=== PATIENT | female | born 1935 | race Caucasian/White ===

== ENCOUNTER → 2017-11-22 08:37 | Outpatient (CLI) | payer MEDICARE, SELFPAY ==
--- NOTE | 2017-11-22 08:41 | NM_ITS ---
CLINICAL: 82-year-old female with reported history of painful left hip arthroplasty, presumably operated > 2 years previous. LIMITED 99m Tc MDP THREE PHASE BONE SCINTIGRAPHY COMPARISON: None available FINDINGS: Following the intravenous administration of 22.3 mCi of 99m Tc MDP, three-phase bone acquisitions of the pelvis reveal: 1. The flow and immediate static blood pool acquisitions demonstrate normal arterial and venous phase distribution of the radiopharmaceutical to the bilateral hemipelvis. 2. Delayed images depict increased radiopharmaceutical concentration identified in the inferior anterior acetabular component and to a lesser extent intertrochanteric aspect of the symptomatic left hip prosthesis. 3. An increase in tracer concentration is identified in the fifth lumbar vertebra posteriorly on the right, posterior sacrum. 4. The remaining limited skeletal structures are scintigraphically unremarkable. The right hip arthroplasty demonstrates no definitive abnormal increase in radiopharmaceutical concentration. NM/Bone Scan Three Phase IMPRESSION: 1. The increase in radiopharmaceutical concentration identified in the inferior-anterior acetabular component and lesser intertrochanteric aspect of the painful left hip prosthesis may represent loosening in the setting of operative intervention > 2 years prior to the current presentation. If an infectious etiology is a diagnostic consideration, correlation with labeled leukocyte imaging is recommended. 2. Degenerative arthritis is otherwise expressed in the fifth lumbar vertebra and sacrum as described above. Electronically Signed: Zhang Madsen DO at 11:02 EST Tel , Service support ,
== END ==
PROVIDERS: Family Provider Family Medicine; PCP Family Medicine; Visit Provider Physician Assistant
DX: Z96.641 Presence of right artificial hip joint (principal); Z96.642 Presence of left artificial hip joint
CPT/HCPCS: 78315

== ENCOUNTER → 2023-07-31 | Outpatient (CLI) | payer MEDICARE, SELFPAY ==
--- NOTE | 2023-07-31 08:56 | US_ITS ---
STUDY: ULTRASOUND BREAST - RIGHT REASON FOR EXAM: Female, 88 years old. Status post mastectomy with palpable mass TECHNIQUE: Axial and longitudinal images of the RIGHT breast were performed with a high resolution ultrasound transducer. # OF IMAGES: 34 COMPARISON: None. FINDINGS: RIGHT Breast: Homogeneous fatty background echotexture. Multiple longitudinal and transverse ultrasound images of the medial right chest wall the site of mastectomy confirm a 1.0 cm oval hyperechoic parallel circumscribed hyperechoic mass with no posterior features in the superficial subcutis fat just deep to the skin consistent with subcutaneous fat or lipoma. There is another similar to centimeter hyperechoic area within the chest wall which may represent focal fat or lipoma.: US/Breast Limited Unilateral IMPRESSION: Ultrasound confirms 2 hyperechoic masses consistent with focal fat or lipoma is. ASSESSMENT CATEGORY: BIRADS Category 2: Benign. A letter regarding these results will be sent to the patient by the facility within 30 days. Electronically Signed: Zhang Mehta MD at 11:15 EDT ,
== END | disposition home or self-care (01) ==
PROVIDERS: PCP Nurse Practitioner; Referring Provider Pharmacist Pharmacist Clinician (PhC)/ Clinical Pharmacy Specialist; Visit Provider Pharmacist Pharmacist Clinician (PhC)/ Clinical Pharmacy Specialist
DX: C50.211 Malignant neoplasm of upper-inner quadrant of right female breast (principal); Z17.1 Estrogen receptor negative status [ER-]; Z90.11 Acquired absence of right breast and nipple; N63.10 Unspecified lump in the right breast, unspecified quadrant
CPT/HCPCS: 76642

== ENCOUNTER 2024-01-22 14:18 | Observation (INO) | payer MEDICARE, SELFPAY ==
[2024-01-22 14:20] VITALS: BP 191/103; PULSE 86; RESP 16; TEMP 37.6; O2SAT 97; BMI 21.7
--- NOTE | 2024-01-22 14:34 | ED.VIS.LOWEX ---
HPI History of Present Illness HPI Narrative: Patient presents with left hip pain that began after a fall today. Patient states she was attempting to give a urine specimen at an outpatient lab when she lost her balance and fell. Patient states she landed on her left hip. Patient states she has been having difficulty bearing weight and moving her hip since the fall. Patient describes her pain as aching. Patient states it is better with rest. Patient denies any paresthesias or weakness. Patient did hit her head but denies any loss of consciousness. Patient is not on any blood thinners. Patient also admits to some pain over the right shoulder area. Patient states that she is able to move her right shoulder without difficulty. Patient states she does not feel there is anything broken in her right shoulder. Chief Complaint: Lower Extremity Injury Onset/Context/Timing Onset: Today Context: Sudden Onset Timing: Continuous Quality of Pain: Aching Location: Left hip Worsened by: Movement, weightbearing Relieved by: Rest Associated Symptoms Associated Symptoms: Positive for Parasthesia [facility] Medical History (Updated 01/22/24 @ 23:[address] Prasad Galeas, ) Diabetes Former smoker History of breast cancer Hyperlipemia Hypothyroidism Osteoarthritis (arthritis due to wear and tear of joints) Pes planus Right knee pain Sialosis Type 2 diabetes mellitus Home Medications multivitamin with folic acid 400 mcg tablet 1 tab PO DAILY 02/27/17 [History Last Taken Unknown] omega-3 fatty acids-fish oil 340 mg-1,000 mg capsule 1 ea PO BID 02/27/17 [History Last Taken Unknown] pravastatin 20 mg tablet 20 mg PO QHS 02/27/17 [History Last Taken Unknown] biotin 10,000 mcg capsule 10,000 mcg PO DAILY 01/11/18 [History Last Taken Unknown] insulin lispro 100 unit/mL subcutaneous pen (Humalog KwikPen (U-100) Insulin) 3 unit subcut DAILY 01/22/24 [History Last Taken Unknown] levothyroxine 88 mcg tablet 88 mcg PO DAILY disorder of thyroid gland 01/22/24 [History Last Taken Unknown] metformin 500 mg 24 hr tablet,extended release (gastric retention) 1,000 mg PO BID 01/22/24 [History Last Taken Unknown] pioglitazone 15 mg tablet 15 mg PO DAILY 01/22/24 [History Last Taken Unknown] sitagliptin phosphate 50 mg tablet (Januvia) 50 mg PO DAILY 01/22/24 [History Last Taken Unknown] Allergy/AdvReac Type Severity Reaction Status Date / Time No Known Allergies Allergy Verified 01/22/24 14:19 Family History (Updated 01/11/18 @ 10:40 by Rosa Calixto) Mother Colon cancer Father Heart disease Brother Parkinson disease Surgical History Colonoscopy planned History of breast biopsy History of mastectomy 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, 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 Social History Smoking Status: Never smoker alcohol intake: current alcohol intake frequency: 0-2 drinks per day Alcohol type: hard liquor what type of physical activity do you participate in: walking frequency: 3-4 times per week ROS ROS ED Constitutional Constitutional ED: Denies chills or fever(s) Eyes Eyes: Denies blurry vision or change in vision ENT ENT ED: Denies rhinorrhea or sore throat Cardiovascular Cardiovascular: Denies chest pain or palpitations Respiratory/Chest Respiratory/Chest: Denies cough or dyspnea Gastrointestinal Gastrointestinal: Denies nausea or vomiting Genitourinary Genitourinary ED: Denies dysuria or hematuria Musculoskeletal Musculoskeletal: Reports back pain; Denies neck pain Integumentary Denies abscess or rash Neurologic Neurologic: Denies headache(s) or weakness Allergic/Immunologic Allergic/Immunologic ED: Denies mouth swelling or urticaria EXAM Physical Exam Const Vital Signs: 01/22/24 14:20 Temperature 99.7 F H Temperature Source Oral Pulse Rate 86 Respiratory Rate 16 Blood Pressure 191/103 H Blood Pressure Mean 132 Pulse Ox 97 Oxygen Delivery Method Room Air Positive well nourished and well developed General Appearance ED: well developed HEENT Reports moist mucous membranes HEENT Narrative: There is a small hematoma over the left parietal area. There is no bony crepitance or step-off noted. There are no lacerations noted. Extremity Extremity Narrative: There is tenderness over the lateral aspect of the left hip. There is no obvious deformity noted. There is pain with internal rotation but no pain with external rotation. Strength is 5/5 bilaterally in the lower extremities. There are no sensory deficits noted. Pedal pulses are equal bilaterally. There is also mild tenderness over the right shoulder and trapezius muscle. There is no obvious deformity. There is no edema or ecchymosis. There is good range of motion. Radial pulses are equal bilaterally. Strength is 5/5 bilaterally upper extremities. There are no sensory deficits noted. Neuro oriented x3, CN's II-XII intact bilaterally, moves all extremities and no sensory deficits noted Sensorium / Orientation: alert Motor Exam: strength 5/5 throughout Psych mental status grossly normal MDM MDM MDM Narrative Medical decision making narrative: Differential diagnosis includes hip fracture, contusion, and head injury. X-rays of the left hip and pelvis will be obtained to assess for fracture and dislocation. Radiography Diagnostic Testing: Clinical Impression(s) from Imaging Studies Hip/Pelvis X-Ray 01/22/24 15:10 IMPRESSION: Osteopenia with osteoarthritic changes, postoperative change and no acute osseous abnormality. Electronically Signed: Igor Culp MD at 15:21 EDT , X-rays of the left hip were obtained. There are 3 views. There is osteopenia. There is no acute fracture or dislocation noted. There are some degenerative changes noted. Radiologist also interpreted the x-ray and agrees. Treatment and Re-Evaluation Narrative: Patient was initially ordered a dose of [place]. Patient does not want any opiate pain medications. Patient requested Tylenol. This was ordered. Patient was advised of her findings. Patient will be ambulated here in the emergency department to see if she can ambulate. Patient was able to ambulate with a walker here in the emergency department. Family states that the patient is unsafe to go home. Family is concerned the patient may fall again. Family is requesting the patient be admitted for physical therapy and custodial placement. Case was discussed with the hospitalist. He will admit the patient to his service. Patient and family understood and were agreeable with the plan. All questions were answered. Discharge Plan Triage Chief Complaint: Lower Extremity Injury ED Provider: Prasad Galeas Dx/Rx/DC Orders Clinical Impression: Fall, Contusion of left hip, initial encounter, Frequent falls Primary Care Provider: Kate Feldman Disposition Disposition: [facility] Discharge Date/Time: 01/22/24 17:55
--- NOTE | 2024-01-22 15:10 | RAD_ITS ---
STUDY: X-RAY - PELVIS AND LEFT HIP REASON FOR EXAM: Female, 89 years old. Fall. Pain. TECHNIQUE: 3 views of the pelvis and hip. COMPARISON: None. FINDINGS: Normal bowel gas pattern with air seen to the rectosigmoid. Moderate amount of feces in the colon. Phleboliths. Osteopenia. Mild arthrosis of both sacroiliac joints and the symphysis pubis. Bilateral total hip arthroplasties in anatomic alignment without complications of the visualized components. Moderate lower lumbosacral spondylosis. RAD/HIP, UNI W/ Pelvis 2-3 Views IMPRESSION: Osteopenia with osteoarthritic changes, postoperative change and no acute osseous abnormality. Electronically Signed: Igor Culp MD at 15:21 EDT ,
[2024-01-22] MEDS: Acetaminophen 500 MG Tablet 1000 MG PO (15:22)
--- NOTE | 2024-01-22 16:19 | ED.RN ---
THIS RN AMBULATED PATIENT AND SHE AMBULATED WELL WITH A WALKER WITH SOME PAIN BUT WAS STILL ABLE TO WALK TO BATHROOM, LOWER HERSELF ONTO TOILET AND AMBULATE HERSELF BACK TO HER ROOM. DAUGHTER IN ROOM AND STATED CONCERN FOR PATIENT TO BE GOING HOME BY HERSELF. THIS RN SPOKE WITH DAUGHTER AND TOLD HER WE DON'T HAVE ANY REASON TO ADMIT PATIENT AND WE DO NOT PRESCRIBE OUTPATIENT PHYSICAL THERAPY IN THE ER. PT. STATES SHE THINKS SHE WOULD BENEFIT FROM AN INAPTIENT REHAB/LONGTERM PLACEMENT. NOTIFIED AND ASKED THIS RN TO CALL SOCIAL WORK.
--- NOTE | 2024-01-22 16:33 | ED.RN ---
THIS RN SPOKE WITH MIKALA MILLS WHO STATED PATIENT WOULD NEED TO BE ADMITTED FOR PT/OT EVAL AND PRECERTIFICATION BEFORE SHE CAN BE PLACE ANYWHERE.
[2024-01-22 17:47] VITALS: BP 144/86; PULSE 87; RESP 16; TEMP 36.8; O2SAT 97
[2024-01-22 17:50] VITALS: BP 144/86; PULSE 89; RESP 17; TEMP 36.4; O2SAT 97
[2024-01-22 18:11] VITALS: BMI 19.8
[2024-01-22 18:39] VITALS: BP 147/91; PULSE 88; RESP 18; TEMP 36.9; O2SAT 98
[2024-01-22 20:08] VITALS: BP 159/86; PULSE 87; RESP 18; TEMP 36.8; O2SAT 99
[2024-01-22 20:34] LABS: Bedside Glucose 355 mg/dL (74-106)
[2024-01-22] MEDS: Pravastatin 20 MG Tablet PO (20:40)
[2024-01-22] MEDS: Insulin Lispro 100 UNIT/ML INSULN.PEN SC (20:40)
--- NOTE | 2024-01-22 21:36 | PCM.HP.STD ---
HPI - General General Date of Admission: 01/22/24 Date of Service: 01/22/24 Chief Complaint: Generalized weakness, left hip pain HPI Narrative SHAWN JACKSON, is a 89 F who presents to the emergency room at [facility] after sustaining a fall today, she was attempting to give a urine specimen at an outpatient lab when she lost her balance and fell, patient landed on her left hip. Patient stated that she has been having difficulty bearing weight and moving her hip since she fell. Workup in the emergency room included imaging studies which showed no evidence of hip fracture, there was no evidence of pelvic fracture. Patient's labs showed a glucose of 355 today. Patient's daughter requested the patient be admitted for PT and OT evaluation, there is a question that the patient may need to go to a penitentiary facility for short-term rehab services rather than go back to her home. Patient will be placed into [facility] and be seen by PT and OT, her home medications will be continued, blood sugars will be monitored. [facility] Medical History (Updated 01/22/24 @ 18:20 by Pat Darling) Diabetes Former smoker History of breast cancer Hyperlipemia Hypothyroidism Osteoarthritis (arthritis due to wear and tear of joints) Pes planus Right knee pain Sialosis Type 2 diabetes mellitus Home Medications multivitamin with folic acid 400 mcg tablet 1 tab PO DAILY 02/27/17 [History Last Taken Unknown] omega-3 fatty acids-fish oil 340 mg-1,000 mg capsule 1 ea PO BID 02/27/17 [History Last Taken Unknown] pravastatin 20 mg tablet 20 mg PO QHS 02/27/17 [History Last Taken Unknown] biotin 10,000 mcg capsule 10,000 mcg PO DAILY 01/11/18 [History Last Taken Unknown] insulin lispro 100 unit/mL subcutaneous pen (Humalog KwikPen (U-100) Insulin) 3 unit subcut DAILY 01/22/24 [History Last Taken Unknown] levothyroxine 88 mcg tablet 88 mcg PO DAILY disorder of thyroid gland 01/22/24 [History Last Taken Unknown] metformin 500 mg 24 hr tablet,extended release (gastric retention) 1,000 mg PO BID 01/22/24 [History Last Taken Unknown] pioglitazone 15 mg tablet 15 mg PO DAILY 01/22/24 [History Last Taken Unknown] sitagliptin phosphate 50 mg tablet (Januvia) 50 mg PO DAILY 01/22/24 [History Last Taken Unknown] Allergy/AdvReac Type Severity Reaction Status Date / Time No Known Allergies Allergy Verified 01/22/24 14:19 Family History (Updated 01/11/18 @ 10:40 by Rosa Calixto) Mother Colon cancer Father Heart disease Brother Parkinson disease Surgical History Colonoscopy planned History of breast biopsy History of mastectomy 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, 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 Social History Smoking Status: Never smoker alcohol intake: current alcohol intake frequency: 0-2 drinks per day Alcohol type: hard liquor what type of physical activity do you participate in: walking frequency: 3-4 times per week ROS Constitutional Constitutional: Reports weakness; Denies anorexia, change in weight, chills, fever(s) or night sweats Eyes Eyes: Denies blurry vision, change in vision, discharge from eye(s) or eye pain Cardiovascular Cardiovascular: Denies chest pain, claudication, dyspnea on exertion, edema, lightheadedness or palpitations Respiratory/Chest Respiratory/Chest: Denies cough, hemoptysis, shortness of breath at rest or shortness of breath with exertion Gastrointestinal Gastrointestinal: Denies abdominal pain, constipation, diarrhea, hematemesis, hematochezia, melena, nausea or vomiting Genitourinary Genitourinary: Denies dysuria, hematuria, urinary frequency, urinary hesitancy, urinary incontinence or urinary urgency Musculoskeletal Musculoskeletal: Denies back pain, joint pain, joint stiffness, joint swelling, myalgias or neck pain Neurologic Neurologic: Denies abnormal gait, abnormal speech, confusion, dizziness, focal weakness, headache(s), loss of vision, numbness, other visual disturbances, paresthesias, syncope or tingling Psychiatric Psychiatric: Denies anxiety, cognitive impairment, depression, irritability, mood swings or suicidal ideation Endocrine Endocrinology: Denies change in body appearance, cold intolerance, excessive sweating, heat intolerance, polydipsia or polyuria Hematologic/Lymphatic Hematologic/Lymphatic: Denies none, anemia, easy bleeding, easy bruising or lymphadenopathy Allergic/Immunologic Allergic/Immunologic: Denies rhinitis, urticaria, eczemia or asthma Vital Signs Vital Signs Vital Signs: 01/22/24 14:20 01/22/24 17:47 01/22/24 17:50 Temperature 99.7 F H 98.3 F 97.5 F L Temperature Source Oral Temporal Pulse Rate 86 87 89 Respiratory Rate 16 16 17 Respiratory Effort Respiratory Depth Respiratory Pattern Blood Pressure 191/103 H 144/86 H 144/86 H Blood Pressure Mean 132 105 105 Blood Pressure Source Blood Pressure Position Blood Pressure Location Pulse Ox 97 97 97 Oxygen Delivery Method Room Air Room Air 01/22/24 18:39 01/22/24 20:08 01/22/24 20:08 Temperature 98.5 F 98.2 F Temperature Source Oral Temporal Pulse Rate 88 87 Respiratory Rate 18 18 Respiratory Effort Normal Non-Labored Respiratory Depth Normal Respiratory Pattern Normal Blood Pressure 147/91 H 159/86 H Blood Pressure Mean 109 110 Blood Pressure Source Monitor Monitor Blood Pressure Position Supine Semi-Fowlers Blood Pressure Location Right Arm Left Arm Pulse Ox 98 99 Oxygen Delivery Method Room Air Room Air Room Air Weight Weight: 47.627 kg Body Mass Index (BMI) 19.8 Physical Exam Const alert, oriented x3, no apparent distress, average body habitus and healthy appearing General Appearance: cooperative, well kempt and well developed Orientation / Consciousness: awake, oriented to person, oriented to place and oriented to time HEENT normocephalic, head/scalp atraumatic, hearing grossly normal bilaterally and moist oral mucous membranes Eyes PERRL, EOMs intact bilaterally and conjunctivae normal Neck supple, no JVD, thyroid normal and no carotid bruits General: trachea midline Resp normal respiratory effort, no retractions, no use of accessory muscles and clear to auscultation bilaterally Auscultation: Negative for rales, rhonchi or wheezes Cardio regular rate, regular rhythm, S1 normal heart sound, S2 normal heart sound, no murmurs, no rub and no gallops GI normal to inspection, nondistended, normoactive bowel sounds, soft to palpation, non-tender and non-distended Extremity no clubbing, cyanosis or edema Skin no rashes or lesions noted General Skin Exam: no breakdown Neuro oriented x3, CN's II-XII intact bilaterally, moves all extremities, no focal motor deficits and no sensory deficits noted Sensorium / Orientation: awake, alert, oriented to person, oriented to place and oriented to time Speech: speech normal Psych affect normal Results Lab / Micro Data Labs: Laboratory Results - last 24 hr 01/22/24 20:11: POC Glucose 355 H Imaging Radiology Impression Hip/Pelvis X-Ray 01/22/24 15:10 IMPRESSION: Osteopenia with osteoarthritic changes, postoperative change and no acute osseous abnormality. Electronically Signed: Igor Culp MD at 15:21 EDT Reading Location ID and State: [address] [place] [address] , Service support , Assessment & Plan Assessment/Plan (1) Contusion of left hip, initial encounter: PLAN: Plan 1. Acute debility secondary to left hip contusion-patient will be placed in observation status on [facility] 3, she will be seen by PT and OT. Patient will be given Tylenol for pain, I cautioned her against taking any nonsteroidal anti-inflammatories due to her age and possible effects on her kidneys. #2 type 2 diabetes-patient's blood sugars will be monitored, sliding scale insulin will be used as needed, patient will remain on her home medications #3 hyperlipidemia-patient is on pravastatin Total clinical time spent by myself addressing the patient's medical issues, reviewing all of her data, and collaborating with patient's care team: 55 minutes Charges/Coding Visit Charges Inpatient E&M: 44908 Init Hosp L2
[2024-01-23 02:26] VITALS: BP 133/71; PULSE 89; RESP 18; TEMP 36.8; O2SAT 95
[2024-01-23] MEDS: Insulin Lispro 100 UNIT/ML INSULN.PEN SC ×4 (05:51→20:45)
[2024-01-23 06:15] LABS: Bedside Glucose 319 mg/dL (74-106)
[2024-01-23 09:10] VITALS: BP 117/73; PULSE 101; RESP 16; TEMP 36.7; O2SAT 95
[2024-01-23] MEDS: Aspirin E.C. 81 MG Tablet PO (09:11)
[2024-01-23 09:25] LABS: Hematocrit 37.5 % (37-47); Hemoglobin 12.4 g/dL (12.0-15.0); Mean Corp Hgb Conc 33.1 g/dL (32-36); Mean Corpuscular Volume 93.8 fL (81-99); Mean Platelet Vol. 9.3 fl (6.2-12.0); Platelet Count 287 K/mm3 (150-450); RBC Distribution Width CV 12.2 % (11.6-14.6); RBC Distribution Width SD 42.1 fl (35.1-43.9)
[2024-01-23 09:58] LABS: Anion Gap 6 (5-15); BUN 12 mg/dL (7-18); BUN/Creat Ratio 16.4 RATIO (10-20); Calcium,Total 9.1 mg/dL (8.5-10.1); Chloride 103 mmol/L (98-107); Creatinine, Serum 0.73 mg/dL (0.55-1.02); EST Glomerular Filtration Rate 80 mL/min (>60); Est Glom Filt Rate - Afr Amer 97 mL/min (>60); Estimated Creatinine Clearance 37.25 ml/min; Glucose 249 mg/dL (74-106); Potassium 3.6 mmol/L (3.5-5.1); Sodium Level 136 mmol/L (136-145)
[2024-01-23 10:06] LABS: Thyroid Stim Hormone (TSH) 1.98 uIU/mL (0.358-3.74)
--- NOTE | 2024-01-23 11:15 | CASEMGMT ---
Discharge Planning A list of SNF providers including quality and resource use data and consistent with the patient's preferred geographic region, medical needs, and insurance network was created in [employer] Guide.? This list was provided to the SW. Padmini Oropeza Discharge Planning Asst.
[2024-01-23 11:18] LABS: Bedside Glucose 273 mg/dL (74-106)
--- NOTE | 2024-01-23 11:35 | CASEMGMT ---
RN?CM?LANDING SIGNAL OFFICER?CM?to room to meet with patient for initial transition planning/care coordination?assessment.?RN?CM?introduced self and role at [facility].? Pt voices understanding and consents to?assessment?at this time.? Pt sitting up in chair in room in no distress at this time.? Pt is A/O at this time and answers all questions appropriately.?? Care providers, pharmacy, and demographics verified/updated at this time. PCP: Dr Feldman Specialists: [facility] (pt does not remember her name). Pt sees an osteopathic physician in [place], Dr Osei-surgeon. Preferred Pharmacy: [facility] Insurance: [employer] Prescription Benefit:? Living Will/HPOA:?Has both LW and HCPOA, who is her son, Russ. LNOK: 2 sons, Russ and Martin. Dtr, Merry. DIL: Irena ( to Martin) Living Arrangements: Lives alone in one-story apt w/one small step to enter. Pt was indep w/ADL's and IADL's until she fell yesterday and has hip pain now. Pt states @ her baseline, she does her own laundry and meals. She drives to grocery store (usually takes a friend w/her) or family will bring in food at times. Since her fall, she states she does not think she can go home alone and be able to take care of herself. Transportation:?Pt states she does drive, but not often. DIL, Irena, takes her to all of her appts. DME: ?States has the following DME:?built-in shower seat, cane, walker, rollator, glucometer. She would like info on medical alert. HHC/SNF: No hx of SNF. Just recently had [facility], but they just discharged her prior to [facility]. Discussed discharge planning and questions answered. Pt states she does not think she will be able to go home @ discharge and thinks she may need to go to a SNF. [facility] is her 1st choice and declines wanting list of other options unless they are unable to accept. She states if she would improve well enough to discharge home, then she would like [facility] again declines wanting list of other options unless they are unable to accept her. PT/OT evals pending. She states Irena/DIL will be coming in today and she would like someone to talk w/her as well re: SNF/insurance process. Radha MILLS, made aware. PLAN:??TBD, pending therapy evals. SNF vs Home w/HHC. Angel BSN?RN?CM
--- NOTE | 2024-01-23 12:11 | PN.HOSP_ITS ---
Reason for Visit Reason for Visit: Diagnoses Contusion of left hip, initial encounter (01/22/24) Subjective Subjective No acute events overnight. Patient seen at bedside this morning. Sitting up comfortably in bedside chair, conversing normally, in no acute distress. Patient denies any pain or discomfort at rest but reports moderate left hip and general left leg pain with ambulation. She otherwise feels well this morning, ate breakfast without issue. No other acute concerns at this time. Discussed further with patient's [id number] Irena over the phone this afternoon. Irena noted that the patient has now had 2 falls in the last few weeks. She noted that this is very unusual for the patient, as the patient has generally had fairly good health at baseline. Apparently the first episode happened when the patient was walking into [place], and she fell into a mulch bed off a sidewalk. Patient noted at that time that she had no prodromal symptoms prior to that episode and did not remember falling. Yesterday, patient did mikie mber falling, states that she was at an outpatient lab to give a urine sample and she felt like she simply lost her balance and fell. Patient denies any lightheadedness or dizziness with going from sitting to standing. Denies any history of palpitations. Objective Data Objective Data Vital Signs: Vital Signs Temp Pulse Resp BP Pulse Ox O2 Del Method 98.1 F 101 H 16 117/73 95 Room Air 01/23/24 09:10 01/23/24 09:10 01/23/24 09:10 01/23/24 09:10 01/23/24 09:10 01/23/24 09:10 Oxygen Delivery Method Room Air Weight: 47.627 kg Body Mass Index (BMI) 19.8 Intake & Output: Intake and Output for Last 24 Hours 01/21/24 01/22/24 01/23/24 23:59 23:59 23:59 Intake Total 825 / 825 Balance 825 / 825 Lab / Micro Data 01/23/24 09:11 01/23/24 09:11 Labs: Laboratory Results - last 24 hr 01/22/24 20:11: POC Glucose 355 H 01/23/24 05:49: POC Glucose 319 H 01/23/24 09:11: WBC 7.0, RBC 4.00 L, Hgb 12.4, Hct 37.5, MCV 93.8, MCH 31.0, MCHC 33.1, RDW Std Deviation 42.1, RDW Coeff of Milly 12.2, Plt Count 287, MPV 9. 3, Sodium 136, Potassium 3.6, Chloride 103, Carbon Dioxide 27.0, Anion Gap 6, BUN 12, Creatinine 0.73, Estim Creat Clear Calc 37.25, Est GFR (MDRD) Af Amer 97, Est GFR (MDRD) Non-Af 80, BUN/Creatinine Ratio 16.4, Glucose 249 H, Calcium 9.1, TSH 1.98 01/23/24 10:59: POC Glucose 273 H Radiography Diagnostic Testing: Radiology Impression Hip/Pelvis X-Ray 01/22/24 15:10 IMPRESSION: Osteopenia with osteoarthritic changes, postoperative change and no acute osseous abnormality. Electronically Signed: Igor Culp MD at 15:21 EDT Reading Location ID and State: [address] [place] [address] , Service support , Physical Exam Const alert, oriented x3 and no apparent distress Constitutional Narrative: Pleasant elderly female, thin appearing, otherwise sitting up comfortably in bed, conversing normally, no acute distress. General Appearance: cooperative and comfortable HEENT normocephalic, head/scalp atraumatic, hearing grossly normal bilaterally, nasal mucous membranes and turbinates normal and moist oral mucous membranes Eyes PERRL, EOMs intact bilaterally and conjunctivae normal Neck full ROM Chest inspection of chest normal Resp normal respiratory effort, normal air movement, no use of accessory muscles and clear to auscultation bilaterally Cardio regular rate, regular rhythm, no murmurs and peripheral pulses 2+ throughout GI normal to inspection, nondistended, normoactive bowel sounds, soft to palpation, non-tender and non-distended Back/Spine normal ROM Extremity normal to inspection Extremity Narrative: No gross abnormalities noted on visual exam. Did not attempt any movement of patient. Skin no rashes or lesions noted Neuro no focal motor deficits and no sensory deficits noted Speech: speech normal Psych mental status grossly normal Assessment & Plan Assessment/Plan (1) Frequent falls: PLAN: Plan Patient is an 89-year-old female who presented to [facility] ED on 01/22/2024 after a fall. 1. Mechanical fall with left hip pain, acute debility, history of bilateral total hip arthroplasties Presented after mechanical fall. Hip/pelvis x-ray on admit showed bilateral total hip arthroplasties in alignment without complications, osteopenia with osteoarthritic changes, no acute abnormalities. ? PT/OT/case management following. Likely planning for SNF on discharge. Tylenol as needed for pain control. 2. Reported recent syncopal episode with fall See HPI for further details. Patient has history of diabetes and hy perlipidemia, no other known cardiac history. CT brain without contrast on 01/22 without acute findings. ? Started on cardiac monitoring on 01/22 and echo ordered for further evaluation for syncope. Will follow-up. 3. Type 2 diabetes mellitus with hyperglycemia Home regimen of metformin 1000 mg twice daily, pioglitazone 15 mg daily, Sitagliptin 50 mg daily. Blood glucose 249 on admit. A1c 8.4%. ? Continue sliding-scale insulin with meals for now, adjust as needed. Chronic medical conditions: ? Hypothyroidism: TSH 1.98 on admit. Continue home Synthroid. ? Hyperlipidemia: Continue home statin. DVT prophylaxis: Lovenox CODE STATUS: Full code, unverified Expected disposition: SNF, 1 to 2 days Total clinical time spent by myself addressing the patient's medical issues, reviewing all the data, and collaborating with patient's care team: 35 minutes. Charges/Coding Visit Charges Inpatient E&M: 20924 Subs Hosp L2
[2024-01-23 12:31] LABS: Hemoglobin A1c 8.4 % (3.8-5.6)
[2024-01-23 14:00] VITALS: BP 131/85; PULSE 96; RESP 18; TEMP 36.8; O2SAT 96
--- NOTE | 2024-01-23 14:41 | CASEMGMT ---
Social Work SW met with pt's daughter in law Jaylin and with pt. Pt and dgt in law in agreement that pt will need short term SNF placement prior to return home alone. A list of SNF providers including quality and resource use data and consistent with the patient?s preferred geographic region, medical needs, and insurance network were [facility]. Pt's preferred provider is [facility]. Pt has not yet had therapy. SW will make referral once therapy has seen. SW provided pt with information regarding medical alert systems. Plan: TCU, pending acceptance and precVIVIAN Mcginnis
--- NOTE | 2024-01-23 15:29 | ECHOD_ITS ---
Reason For Study: Syncope Procedure This was a 2D Doppler, Color Flow transthoracic echocardiogram. Myocardial strain analysis was performed in this exam to aid in the assessment of cardiac function. Exam performed portable in patient room. Left Ventricle Normal LV size. Left ventricular systolic function is normal. The estimated ejection fraction is 55 %. Stage 1 diastolic dysfunction. No regional wall motion abnormalities noted. Right Ventricle Normal RV size. Normal systolic function. Atria Normal left atrium. Normal right atrium. Mitral Valve Normal mitral valve. Tricuspid Valve Normal tricuspid valve. Mild (1+) tricuspid valve insufficiency. Pulmonary artery systolic pressure is 30 mmHg. Aortic Valve Trisinus/trileaflet aortic valve. Mild (1+) aortic valve insufficiency. Pulmonic Valve Normal pulmonic valve. Great Vessels Mildly dilated aortic root. The pulmonary artery is normal size. Normal inferior vena cava. Pericardium/Pleural Small pericardial effusion. MMode/2D Measurements & Calculations LVIDd: 4.3 cm IVSd: 1.1 cm Ao root diam: 3.8 cm LVIDs: 2.2 cm LVPWd: 1.1 cm RVDd: 2.6 cm FS: 48.5 % LAV(MOD-bp): 22.0 ml LVAd ap4: 17.1 cm2 SV(MOD-sp4): 21.7 ml LAV(MOD-bp) Indexed: 15.3 ml/m2 LVLd ap4: 6.8 cm LAV(MOD-sp2): 21.1 ml EDV(MOD-sp4): 35.8 ml LAV(MOD-sp4): 22.4 ml EDV(sp4-el): 36.6 ml LVAs ap4: 9.3 cm2 LVLs ap4: 5.3 cm ESV(MOD-sp4): 14.1 ml ESV(sp4-el): 13.8 ml EF(MOD-sp4): 60.7 % EF(sp4-el): 62.2 % SV(sp4-el): 22.8 ml LA A4 area: 10.6 cm2 LA dimension(2D): 3.3 cm RA A4 area: 9.0 cm2 TAPSE: 2.3 cm Time Measurements MV dec time: 0.21 sec Doppler Measurements & Calculations MV E max amandeep: 56.7 cm/sec Lat Peak E' Amandeep: 8.2 cm/sec Med Peak E' Amandeep: 5.5 cm/sec MV A max amandeep: 92.2 cm/sec E/E' lat: 6.9 E/E' med: 10.4 MV E/A: 0.61 Ao V2 max: 132.3 cm/sec AI max amandeep: 389.9 cm/sec MV dec slope: 273.4 cm/sec2 Ao max P.0 mmHg AI max P.8 mmHg Ao V2 mean: 97.1 cm/sec Ao mean P.0 mmHg AI dec slope: 239.3 cm/sec2 Ao V2 VTI: 25.5 cm AI P1/2t: 477.1 msec AV (velocity ratio): 0.80 LV V1 max: 106.4 cm/sec PA V2 max: 101.6 cm/sec PI end-d amandeep: 119.7 cm/sec LV V1 max P.5 mmHg LV V1 mean P.6 mmHg LV V1 mean: 78.5 cm/sec LV V1 VTI: 20.3 cm TR max amandeep: 256.4 cm/sec TR max P.3 mmHg ECHO/Echo Complete Interpretation Summary Normal LV size. Left ventricular systolic function is normal. The estimated ejection fraction is 55 %. Mild (1+) aortic valve insufficiency. Stage 1 diastolic dysfunction. The global longitudinal strain is mildly abnormal. The global longitudinal stra in = -16.7% (abnormal). Ordering Physician: Chace Randle Referring Physician: Kate Feldman Performed By: Brittany Hernandez, KAREN, RVT
--- NOTE | 2024-01-23 15:31 | CASEMGMT ---
Met with patient to complete CASTELLANO form. CASTELLANO form explained to?pt who voiced understanding and signed form. Original form placed in pt?s chart and copy provided to?patient. Padmini Oropeza, Discharge Planning Asst
--- NOTE | 2024-01-23 15:52 | CT_ITS ---
EXAMINATION : Head CT w/out contrast HISTORY : recent falls, r/o intracranial pathology COMPARISON : None. TECHNIQUE : Multiple contiguous axial images were obtained from the skull base to the vertex without intravenous contrast. A radiation dose optimization technique was used for this scan. FINDINGS : There is no evidence for acute intracranial hemorrhage, mass effect, or midline shift. There is no extra-axial fluid collection. There are periventricular white matter changes consistent with chronic microvascular ischemic disease. There is sulcal widening and ventricular enlargement consistent with cerebral atrophy. There is normal singh-white differentiation, without CT evidence of acute ischemia or infarct. The skull base and calvarium are unremarkable. The orbits are unremarkable. The paranasal sinuses are clear. The mastoid air cells are well-aerated. The soft tissues are unremarkable. CT/Brain/Head without Contrast IMPRESSION: No acute intracranial abnormality. Chronic involutional and ischemic changes of the brain. Electronically Signed: Alessandro Ro MD at 16:44 EDT ,
[2024-01-23 16:42] LABS: Bedside Glucose 229 mg/dL (74-106)
[2024-01-23 20:38] VITALS: BP 164/88; PULSE 86; RESP 16; TEMP 36.6; O2SAT 96
[2024-01-23] MEDS: Pravastatin 20 MG Tablet PO (20:45)
[2024-01-23 21:08] LABS: Bedside Glucose 264 mg/dL (74-106)
[2024-01-24 02:40] VITALS: BP 153/91; PULSE 84; RESP 18; TEMP 36.9; O2SAT 94
[2024-01-24] MEDS: Insulin Lispro 100 UNIT/ML INSULN.PEN SC ×2 (05:32→12:03)
[2024-01-24 05:46] LABS: Bedside Glucose 247 mg/dL (74-106)
[2024-01-24 07:27] VITALS: BP 133/77; PULSE 88; RESP 14; TEMP 36.9; O2SAT 93
--- NOTE | 2024-01-24 08:52 | CASEMGMT ---
Addendum entered by Radha Parada 01/24/24 14:44: Social Work Precert has been obtained and physician updated. Per physician, pt is ready for dc today. DC orders faxed to TCU. SW met with pt and informed of dc today to TCU and pt is agreeable. Phone call to pts HCPOA and reviewed dc plan and he is agreeable. BART Mosqueda updated and agreeable. Nursing notified. Plan: TCU, skilled level of care VIVIAN Koehler Addendum entered by Radha Parada 01/24/24 10:14: Social Work TCU is able to accept pt and precert has been started. LINA met with pt and BART Osborn and updated. Both parties agreeable to dc plan. Plan: TCU, pending precert VIVIAN Del Angel Original Note: Social Work Pt has been seen by therapy and pt would benefit from short term SNF stay prior to return home. Pt's preferred provider is TCU. Referral made to TCU. LINA will await determination of acceptance. Pt will need precert prior to dc. Plan: TCU, pending acceptance and precert VIVIAN Koehler
[2024-01-24] MEDS: Enoxaparin 40 MG/0.4 ML Syringe SC (09:35)
[2024-01-24 11:49] LABS: Bedside Glucose 282 mg/dL (74-106)
--- NOTE | 2024-01-24 12:22 | DS.PCM_ITS ---
Providers Date of Admission: 01/22/24 Date of Discharge: 01/24/24 Primary Care Physician: Dr. Kate Feldman MD Reason For Visit: DEBILITY Diagnosis Discharge Diagnosis (1) Frequent falls: Status: Acute Code(s): R29.6 - Repeated falls Medications at Discharge Home Medications multivitamin with folic acid 400 mcg tablet 1 tab PO DAILY 02/27/17 omega-3 fatty acids-fish oil 340 mg-1,000 mg capsule 1 ea PO BID 02/27/17 pravastatin 20 mg tablet 20 mg PO QHS 02/27/17 biotin 10,000 mcg capsule 10,000 mcg PO DAILY 01/11/18 levothyroxine 88 mcg tablet 88 mcg PO DAILY disorder of thyroid gland 01/22/24 metformin 500 mg 24 hr tablet,extended release (gastric retention) 1,000 mg PO BID 01/22/24 pioglitazone 15 mg tablet 15 mg PO DAILY 01/22/24 sitagliptin phosphate 50 mg tablet (Januvia) 50 mg PO DAILY 01/22/24 Hospital Course Procedures EKG, Transthoracic echo and - (CT brain without contrast, hip/pelvis x-ray) Summary of Care Provided Minutes Spent on Discharge: 35 Hospital Course: Patient is an 89-year-old female who presented to [facility] ED on 01/22/2024 after a fall. Short hospital course as noted below. Patient di scharged to SNF in stable condition on . Mechanical fall with left hip pain, acute debility, history of bilateral total hip arthroplasties Presented after mechanical fall. Hip/pelvis x-ray on admit showed bilateral total hip arthroplasties in alignment without complications, osteopenia with osteoarthritic changes, no acute abnormalities. ? PT/OT/case management followed. Tylenol and ibuprofen as needed for pain control. Stable for discharge to SNF ([facility]) on 01/23. . Reported recent syncopal episode with fall See HPI for further details. Patient has history of diabetes and hype rlipidemia, no other known cardiac history. CT brain without contrast on 01/22 without acute findings. Cardiac monitoring done for approximate 24 hours, did not show any concerning findings. Echo on 01/23 showed EF 55%, stage I diastolic dysfunction, mildly abnormal global longitudinal strain, no significant valve disease. ? Very unlikely that any cardiac issues were contributing to this concern for syncopal episode or falls, suspect falls are mechanical in nature. Discharged to SNF as noted above. 3. Type 2 diabetes mellitus with hyperglycemia Home regimen of metformin 1000 mg twice daily, pioglitazone 15 mg daily, Sitagliptin 50 mg daily. Blood glucose 249 on admit. A1c 8.4%. ? Blood sugars did remain elevated in the 200s fairly consistently during hospitalization, suspect this is where her blood sugars normally run. Patient with good volume status, no polyuria or polydipsia noted. Treated with sliding- scale insulin with meals while inpatient. Okay to resume home p.o. regimen on discharge. Chronic medical conditions: ? Hypothyroidism: TSH 1.98 on admit. Continue home Synthroid. ? Hyperlipidemia: Continue home statin. Total clinical time spent by myself addressing the patient's medical issues, reviewing all the data, and collaborating with patient's care team: 35 minutes. Physical Exam Const alert, oriented x3 and no apparent distress Constitutional Narrative: Pleasant elderly female, thin appearing, otherwise sitting up comfortably in bed, conversing normally, no acute distress. General Appearance: cooperative and comfortable HEENT normocephalic, head/scalp atraumatic, hearing grossly normal bilaterally, nasal mucous membranes and turbinates normal and moist oral mucous membranes Eyes PERRL, EOMs intact bilaterally and conjunctivae normal Neck full ROM Chest inspection of chest normal Resp normal respiratory effort, normal air movement, no use of accessory muscles and clear to auscultation bilaterally Cardio regular rate, regular rhythm, no murmurs and peripheral pulses 2+ throughout GI normal to inspection, nondistended, normoactive bowel sounds, soft to palpation, non-tender and non-distended Back/Spine normal ROM Extremity normal to inspection Extremity Narrative: No gross abnormalities noted on visual exam. Did not attempt any movement of patient. Skin no rashes or lesions noted Neuro no focal motor deficits and no sensory deficits noted Speech: speech normal Psych mental status grossly normal Weight / BMI Weight Weight: 47.627 kg Body Mass Index (BMI) 19.8 ABG / Lab / Microbiology Data 01/23/24 09:11 01/23/24 09:11 Laboratory: Laboratory Results - last 24 hr 01/23/24 09:11: Hemoglobin A1c 8.4 H 01/23/24 16:24: POC Glucose 229 H 01/23/24 20:42: POC Glucose 264 H 01/24/24 05:28: POC Glucose 247 H 01/24/24 11:06: POC Glucose 282 H Radiography Diagnostic Testing: Radiology Impression Brain CT 01/23/24 15:52 IMPRESSION: No acute intracranial abnormality. Chronic involutional and ischemic changes of the brain. Electronically Signed: Alessandro Ro MD at 16:44 EDT Reading Location ID and State: [facility] / [place] Tel , Service support , Meaningful Use Info Meaningful Use Diagnoses (Choose all that apply): None applicable Discharge Plan Admission Admit Date/Time: 01/22/24 16:56 Primary Reason for Your Visit: Falls with debility Attending Provider: Chace Randle Primary Care Provider: Kate Feldman Consulting Providers: Brian Mclaughlin Instructions Patient Instructions: ED Contusion, Lower Extremity Discharge Orders/Prescriptions Prescriptions: Continued biotin 10,000 mcg capsule 10,000 mcg PO DAILY pravastatin 20 MG tablet 20 mg PO QHS omega-3 fatty acids-fish oil 1 EACH capsule 1 ea PO BID multivitamin with folic acid 1 TABLET tablet 1 tab PO DAILY pioglitazone 15 mg tablet 15 mg PO DAILY levothyroxine 88 mcg tablet 88 mcg PO DAILY metformin 500 mg tablet,ER manjula.retention 24 hr 1,000 mg PO BID Januvia 50 mg tablet 50 mg PO DAILY Discontinued insulin lispro [Humalog KwikPen Insulin] 100 unit/mL insulin pen 3 unit subcut DAILY Rx Instructions: 3 UNIT BEFORE BREAKFAST, 5 BEFORE LUNCH AND 5 BEFORE DINNER Referrals / Follow Up: Kate Feldman MD [Primary Care Provider] - 3-5 Days LEE LEHMAN NP-C [Non-Staff] - Disposition Disposition (needs filled in before D/C Order can be placed): [facility] Charges/Coding Visit Charges Inpatient E&M: 60203 Disch Hosp >30min
--- NOTE | 2024-01-24 12:22 | TREXTCAR_ITS ---
Diet Diet Order/Speech Therapy: 01/22/24 18:08 Diet: Consistent Carb - Calorie Controlled Food consistency:: Regular Liquid Consistency:: Regular/Thin How many daily calories?: 1800 calorie Routine Orders/Code Status Code Status: Full Code Therapies Weight Bearing: Full weight bearing Physical Therapy: Eval and Treat Occupational Therapy: Eval and Treat Problem/Diagnosis (1) Frequent falls: Status: Acute Code(s): R29.6 - Repeated falls Plan Patient is an 89-year-old female who presented to [facility] ED on 01/22/2024 after a fall. Short hospital course as noted below. Patient discharged to SNF in stable condition on 01/23. 1. Mechanical fall with left hip pain, acute debility, history of bilateral total hip arthroplasties Presented after mechanical fall. Hip/pelvis x-ray on admit showed bilateral total hip arthroplasties in alignment without complications, osteopenia with osteoarthritic changes, no acute abnormalities. ? PT/OT/case management followed. Tylenol and ibuprofen as needed for pain control. Stable for discharge to SNF ([facility]) on 01/23. 2. Reported recent syncopal episode with fall See HPI for further details. Patient has history of diabetes and hyperlipidem ia, no other known cardiac history. CT brain without contrast on 01/22 without acute findings. Cardiac monitoring done for approximate 24 hours, did not show any concerning findings. Echo on 01/23 showed EF 55%, stage I diastolic dysfunction, mildly abnormal global longitudinal strain, no significant valve disease. ? Very unlikely that any cardiac issues were contributing to this concern for syncopal episode or falls, suspect falls are mechanical in nature. Discharged to SNF as noted above. 3. Type 2 diabetes mellitus with hyperglycemia Home regimen of metformin 1000 mg twice daily, pioglitazone 15 mg daily, Sitagliptin 50 mg daily. Blood glucose 249 on admit. A1c 8.4%. ? Blood sugars did remain elevated in the 200s fairly consistently during hospitalization, suspect this is where her blood sugars normally run. Patient with good volume status, no polyuria or polydipsia noted. Treated with sliding- scale insulin with meals while inpatient. Okay to resume home p.o. regimen on discharge. Chronic medical conditions: ? Hypothyroidism: TSH 1.98 on admit. Continue home Synthroid. ? Hyperlipidemia: Continue home statin. Total clinical time spent by myself addressing the patient's medical issues, reviewing all the data, and collaborating with patient's care team: 35 minutes. Allergies/Procedures Done in Hospital Allergies No Known Allergies Allergy (Verified 01/22/24 14:19) Procedures: EKG, Transthoracic Echo and - (CT brain without contrast, hip/pelvis x-ray) Type of Care/Length of Stay Estimated LOS: Convalescent Care Less Than 30 days Type of Care Needed: Skilled Rehab Potential: Fair Prognosis: Fair Additional Orders/Day of Discharge H&P will serve as current which was dated: 01/22/24 Day of Discharge: 01/24/24 Discharge Plan Admission Admit Date/Time: 01/22/24 16:56 Primary Reason for Your Visit: Falls with debility Attending Provider: Chace Randle Primary Care Provider: Kate Feldman Consulting Providers: Brian Mclaughlin Instructions Patient Instructions: ED Contusion, Lower Extremity Discharge Orders/Prescriptions Prescriptions: Continued biotin 10,000 mcg capsule 10,000 mcg PO DAILY pravastatin 20 MG tablet 20 mg PO QHS omega-3 fatty acids-fish oil 1 EACH capsule 1 ea PO BID multivitamin with folic acid 1 TABLET tablet 1 tab PO DAILY pioglitazone 15 mg tablet 15 mg PO DAILY levothyroxine 88 mcg tablet 88 mcg PO DAILY metformin 500 mg tablet,ER manjula.retention 24 hr 1,000 mg PO BID Januvia 50 mg tablet 50 mg PO DAILY Discontinued insulin lispro [Humalog KwikPen Insulin] 100 unit/mL insulin pen 3 unit subcut DAILY Rx Instructions: 3 UNIT BEFORE BREAKFAST, 5 BEFORE LUNCH AND 5 BEFORE DINNER Referrals / Follow Up: Kate Feldman MD [Primary Care Provider] - 3-5 Days LEE LEHMAN NP-C [Non-Staff] - Disposition Disposition (needs filled in before D/C Order can be placed): [facility] Facility
[2024-01-24] MEDS: Ibuprofen 400 MG Tablet PO (13:48)
[2024-01-24 14:04] VITALS: BP 124/65; PULSE 104; RESP 18; TEMP 37.1; O2SAT 92
--- NOTE | 2024-01-24 14:39 | PHA.DC.MR.R ---
Pharmacy [place] Med Reconciliation Pharmacy Service has performed discharge medication reconciliation for this patient. The patient's discharge medication list was reviewed for discrepancies and discrepancies were resolved. Medications at Discharge Home Medications multivitamin with folic acid 400 mcg tablet 1 tab PO DAILY 02/27/17 omega-3 fatty acids-fish oil 340 mg-1,000 mg capsule 1 ea PO BID 02/27/17 pravastatin 20 mg tablet 20 mg PO QHS 02/27/17 biotin 10,000 mcg capsule 10,000 mcg PO DAILY 01/11/18 levothyroxine 88 mcg tablet 88 mcg PO DAILY disorder of thyroid gland 01/22/24 metformin 500 mg 24 hr tablet,extended release (gastric retention) 1,000 mg PO BID 01/22/24 pioglitazone 15 mg tablet 15 mg PO DAILY 01/22/24 sitagliptin phosphate 50 mg tablet (Januvia) 50 mg PO DAILY 01/22/24
--- NOTE | 2024-01-24 16:07 | NURSING ---
All documentation by registered nursing professor, Estrella Whyte, reviewed by nursing home assistant administrator, Carey WASHINGTONN, RN.
== END 2024-01-24 16:35 | disposition skilled nursing facility (03) ==
LOC: ED 15:55 → MS3 17:43
PROVIDERS: Admitting Provider Internal Medicine; Emergency Provider Emergency Medicine; PCP Internal Medicine; Visit Provider Hospitalist
DX: S70.02XA Contusion of left hip, initial encounter (principal); E11.65 Type 2 diabetes mellitus with hyperglycemia; Z79.4 Long term (current) use of insulin; E78.5 Hyperlipidemia, unspecified; M85.80 Other specified disorders of bone density and structure, unspecified site; R53.81 Other malaise; E03.9 Hypothyroidism, unspecified; M19.90 Unspecified osteoarthritis, unspecified site; Z87.891 Personal history of nicotine dependence; Z79.899 Other long term (current) drug therapy; Z79.84 Long term (current) use of oral hypoglycemic drugs; Z79.890 Hormone replacement therapy; W19.XXXA Unspecified fall, initial encounter; Z96.643 Presence of artificial hip joint, bilateral
CPT/HCPCS: 36415; 70450; 73502; 80048; 82962; 83036; 84443; 85027; 93306; 96372; 97110; 97116; 97162; 97166; 99221; 99283; G0378

== ENCOUNTER 2024-01-24 16:53 | Inpatient (IN) | payer MEDICARE, SELFPAY ==
[2024-01-24 17:02] VITALS: BP 141/77; PULSE 84; RESP 16; TEMP 36.6; O2SAT 95; BMI 19.3
[2024-01-24 18:25] LABS: Bedside Glucose 244 mg/dL (74-106)
--- NOTE | 2024-01-24 19:59 | HP.PCM_ITS ---
HPI - General General Date of Admission: 01/24/24 Date of Service: 01/24/24 Chief Complaint: Here for rehabilitation. HPI Narrative 01/22/2024 SHAWN JACKSON, is a 89 Female who presents to [facility] ED with fall. Left hip pain after fall, attempting to give urine sample at outpatient lab, lost balance, and fell. Landed on left hip, Difficulty bearing weight afterwards, difficulty moving left hip, aching pain. Hit head, but no LOC, mild right shoulder pain. X-ray left hip negative, Tylenol given. Able to walk with walker, BUT family feels patient unsafe to go home. Admit for placement. 01/22/2024 Admit [facility]. PT/OT, Tylenol, left hip contusion. 01/23/2024 PT/OT SNF. CT head negative. Echo for syncope. 01/23/2024 Echo Normal LV size. LVSF normal. EF 55. Stage 1 diastolic dysfunction. Global longitudinal strain. 01/24/2024 Admit to TCU with debility, here for rehabiitation, strengthening, prior to discharge home alone. [facility] Medical History (Updated 01/24/24 @ 20:[address] Wong Estevez MD) Diabetes Former smoker History of breast cancer Hyperlipemia Hypothyroidism Osteoarthritis (arthritis due to wear and tear of joints) Pes planus Right knee pain Sialosis Type 2 diabetes mellitus Home Medications multivitamin with folic acid 400 mcg tablet 1 tab PO DAILY Supplement 02/27/17 [History Last Taken Unknown] omega-3 fatty acids-fish oil 340 mg-1,000 mg capsule 1 ea PO BID Supplement 02/27/17 [History Last Taken Unknown] pravastatin 20 mg tablet 20 mg PO QHS Cholesterol 02/27/17 [History Last Taken Unknown] biotin 10,000 mcg capsule 10,000 mcg PO DAILY Supplement 01/11/18 [History Last Taken Unknown] levothyroxine 88 mcg tablet 88 mcg PO DAILY disorder of thyroid gland 01/22/24 [History Last Taken Unknown] metformin 500 mg 24 hr tablet,extended release (gastric retention) 1,000 mg PO BID Diabetes 01/22/24 [History Last Taken Unknown] pioglitazone 15 mg tablet 15 mg PO DAILY Diabetes 01/22/24 [History Last Taken Unknown] sitagliptin phosphate 50 mg tablet (Januvia) 50 mg PO DAILY Diabetes 01/22/24 [History Last Taken Unknown] Allergy/AdvReac Type Severity Reaction Status Date / Time No Known Allergies Allergy Verified 01/22/24 14:19 Family History Mother Colon cancer Father Heart disease Brother Parkinson disease Surgical History Colonoscopy planned History of breast biopsy History of mastectomy 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 Wong Estevez MD) household members: none Smoking Status: Never smoker alcohol intake: current alcohol intake frequency: 0-2 drinks per day Alcohol type: hard liquor what type of physical activity do you participate in: walking frequency: 3-4 times per week ROS Constitutional Constitutional: Reports frequent falls and weakness; Denies chills, fever(s) or weight gain ENT HEENT: Denies headache(s), nasal congestion or nasal discharge Cardiovascular Cardiovascular: Denies chest pain or palpitations Respiratory/Chest Respiratory/Chest: Denies cough, excessive phlegm production or shortness of breath with exertion Gastrointestinal Gastrointestinal: Denies abdominal pain, nausea or vomiting Genitourinary Genitourinary: Denies dysuria Musculoskeletal Musculoskeletal: Denies joint pain or joint swelling Integumentary Integumentary: Denies rash or wounds Neurologic Neurologic: Denies focal weakness, numbness or tingling Psychiatric Psychiatric: Denies anxiety, auditory hallucinations, depression, homicidal ideation or suicidal ideation Vital Signs Vital Signs Vital Signs: 01/24/24 17:02 01/24/24 17:02 Temperature 97.8 F Temperature Source Temporal Pulse Rate 84 Pulse Rhythm Regular Pulse Strength Normal (2+) Respiratory Rate 16 Respiratory Effort Normal Non-Labored Respiratory Depth Normal Respiratory Pattern Normal Blood Pressure 141/77 H Blood Pressure Mean 98 Blood Pressure Source Monitor Blood Pressure Position Semi-Fowlers Blood Pressure Location Right Arm Pulse Ox 95 Oxygen Delivery Method Room Air Room Air Weight Weight: 46.408 kg Body Mass Index (BMI) 19.3 Physical Exam Const alert General Appearance: cooperative HEENT normocephalic Eyes PERRL and EOMs intact bilaterally Neck supple, no JVD and no carotid bruits Resp normal respiratory effort, normal air movement and clear to auscultation bilaterally Cardio regular rate and regular rhythm GI normal to inspection, nondistended, normoactive bowel sounds, non-tender and non-distended Extremity normal capillary refill General Extremity: Negative for edema Skin no rashes or lesions noted General Skin Exam: no breakdown Psych affect normal Appearance: appropriate Results Lab / Micro Data Labs: Laboratory Results - last 24 hr 01/24/24 18:06: POC Glucose 244 H Assessment & Plan Assessment/Plan (1) Debility: (2) Frequent falls: (3) Left hip pain: (4) Type 2 diabetes mellitus: (5) Hyperlipemia: (6) Hypothyroidism: PLAN: Plan 89 year old female with below past medical history hospitalized for fall, left hip contusion, admitted to TCU with debility, here for rehabilitation, strengthening, prior to discharge home alone. * Debility - PT/OT. * Pain - Tylenol 1000mg q6 prn pain (1-10). * Bowel - senna/colace 1 tablet bid prn, Magnesium citrate 300ml daily prn. * Adult immunization - Administer pneumonia vaccine, covid vaccine, flu vaccine as appropriate. * DVT prophylaxis - Lovenox 40mg sc daily. * Hypothyroidism - Levothyroxine 88mcg daily. * Diabetes Mellitus II - A1c 8.4, Metformin XR 1000mg bidcm, Tradjenta 5mg daily, Triston 15mg daily. * Nutrition - MVI 1 tablet daily. * Hyperlipidemia - Pravastatin 20mg qhs, [place] 3 1gm bid.
[2024-01-24] MEDS: Pravastatin 20 MG Tablet PO (21:23)
[2024-01-24] MEDS: Omega-3 Acid Ethyl Esters 1 GM Capsule PO (21:23)
[2024-01-25] MEDS: Acetaminophen 500 MG Tablet 1000 MG PO ×3 (02:05→23:32)
[2024-01-25 05:47] LABS: Absolute Lymphocyte Count 0.99 X10^3/uL (0.83-4.51); Absolute Neutrophil Count 5.3 X10^3/uL (2.0-7.7); Basophil# 0.03 X10^3/uL; Basophil% 0.4 % (0-1); Eosinophil# 0.14 X10^3/uL; Eosinophils% 1.9 % (0-5); Hematocrit 34.2 % (37-47); Hemoglobin 11.4 g/dL (12.0-15.0); Lymphocyte # 0.99 X10^3/ul (0.83-4.51); Lymphocyte % 13.8 % (19-41); Mean Corp Hgb Conc 33.3 g/dL (32-36); Mean Corpuscular Hgb 31.1 pg (27.0-32.0); Mean Corpuscular Volume 93.2 fL (81-99); Mean Platelet Vol. 9.6 fl (6.2-12.0); Monocyte# 0.66 X10^3/uL; Monocyte% 9.2 % (0-10); NRBC Flagged by Analyzer 0 % (0-5); Neutrophil # 5.32 X10^3/uL (2.7-7.7); Platelet Count 244 K/mm3 (150-450); RBC Distribution Width CV 12.2 % (11.6-14.6); RBC Distribution Width SD 41.7 fl (35.1-43.9); Red Blood Count 3.67 M/mm3 (4.2-5.4); White Blood Count 7.2 K/mm3 (4.4-11.0)
[2024-01-25] MEDS: Enoxaparin 40 MG/0.4 ML Syringe SC (06:01)
[2024-01-25] MEDS: Levothyroxine 88 MCG Tablet PO (06:01)
[2024-01-25 06:42] LABS: Anion Gap 8 (5-15); BUN 21 mg/dL (7-18); Calcium,Total 8.4 mg/dL (8.5-10.1); Chloride 104 mmol/L (98-107); Creatinine, Serum 0.66 mg/dL (0.55-1.02); EST Glomerular Filtration Rate 91 mL/min (>60); Est Glom Filt Rate - Afr Amer 110 mL/min (>60); Glucose 333 mg/dL (74-106); Sodium Level 137 mmol/L (136-145)
[2024-01-25 06:54] LABS: Bedside Glucose 322 mg/dL (74-106)
[2024-01-25] MEDS: metFORMIN (XR) 500 MG Tablet 1000 MG PO ×2 (09:17→18:09)
[2024-01-25] MEDS: Multivitamins,Therapeutic Tablet 1 TABLET PO (09:18)
[2024-01-25] MEDS: Pioglitazone Hydrochloride 15 MG Tablet PO (09:18)
[2024-01-25] MEDS: Omega-3 Acid Ethyl Esters 1 GM Capsule PO ×2 (09:18→21:15)
[2024-01-25] MEDS: LINAGLIPTIN 5 MG TABLET PO (09:18)
[2024-01-25] MEDS: Saliva Substitute 237 ML BOTTLE 15 ML MUCOUS MEM ×2 (09:47→23:27)
[2024-01-25] MEDS: Hydrocortisone 2.5% Ointment 20 gm tube 1 APPLIC TOPICAL (09:49)
[2024-01-25] MEDS: Tuberculin,Purif.prot.deriv. 50 TU/ML Vial 0.1 ML ID (09:54)
[2024-01-25] MEDS: Insulin Lispro 100 UNIT/ML INSULN.PEN SC ×3 (12:10→23:22)
[2024-01-25 12:23] LABS: Bedside Glucose 308 mg/dL (74-106)
[2024-01-25 13:41] VITALS: BP 142/77; PULSE 91; RESP 16; TEMP 37.2; O2SAT 96
[2024-01-25 18:07] LABS: Bedside Glucose 312 mg/dL (74-106)
[2024-01-25 22:14] LABS: Bedside Glucose 333 mg/dL (74-106)
--- NOTE | 2024-01-25 22:54 | NURSING ---
notified via phone of HS blood sugar of 333. Pt states does not want long acting insulin, non compliant with carb controlled diet. states If I want cake I will eat cake. N.O. received Humalog 5U SQ x1 dose Now, Increase current Humalog to 5U SQ TID AC. Orders repeated back and verified.
[2024-01-25] MEDS: Pravastatin 20 MG Tablet PO (23:21)
[2024-01-26 02:05] VITALS: PULSE 85; RESP 16; O2SAT 95
[2024-01-26] MEDS: Enoxaparin 40 MG/0.4 ML Syringe SC (06:07)
[2024-01-26] MEDS: Levothyroxine 88 MCG Tablet PO (06:07)
[2024-01-26 06:31] LABS: Bedside Glucose 292 mg/dL (74-106)
--- NOTE | 2024-01-26 06:49 | NURSING ---
Patient c/o difficulty sleeping. Written communication left for Dr. Estevez requesting PRN sleep aid.
[2024-01-26] MEDS: Insulin Lispro 100 UNIT/ML INSULN.PEN 10 UNIT SC ×3 (07:54→17:44)
[2024-01-26] MEDS: Multivitamins,Therapeutic Tablet 1 TABLET PO (07:55)
[2024-01-26] MEDS: metFORMIN (XR) 500 MG Tablet 1000 MG PO ×2 (07:55→17:44)
[2024-01-26] MEDS: Pioglitazone Hydrochloride 15 MG Tablet PO (10:03)
[2024-01-26] MEDS: Omega-3 Acid Ethyl Esters 1 GM Capsule PO ×2 (10:04→20:03)
[2024-01-26] MEDS: LINAGLIPTIN 5 MG TABLET PO (10:04)
--- NOTE | 2024-01-26 10:28 | PHA.CONS_ITS ---
Documented by User: Jaron Marks 01/26/24 10:47 TCU RX Drug Regimen Review Subjective/Objective Subjective/Objective: Subjective: TCU admission note. 89 year old female with below past medical history hospitalized for fall, left hip contusion, admitted to TCU with fabian harris, here for rehabilitation, strengthening, prior to discharge home alone. Objective: Allergies No Known Allergies Allergy (Verified 01/22/24 14:19) Current Medications Generic Name Dose Route Start Last Admin Trade Name Freq PRN Reason Stop Dose Admin Acetaminophen 1,000 mg 01/26/24 07:52 Acetaminophen 500 Mg Tablet PO Q6H PRN PRN Pain Score 1-10 Enoxaparin Sodium 40 mg 01/25/24 06:00 01/26/24 06:07 Enoxaparin 40 Mg/0.4 Ml Syringe SC 40 mg DAILY@0600 YUE Administration Hydrocortisone 1 applic 01/25/24 07:33 01/25/24 09:49 Hydrocortisone 2.5% Ointment 20 Gm Tube TOPICAL 1 applic BID PRN PRN Administration RASH/TOPICAL IRRITATION Protocol Insulin Human Lispro 10 unit 01/26/24 11:45 Insulin Lispro 100 Unit/Ml Insuln.Pen SC TIDAC YUE Levothyroxine Sodium 88 mcg 01/25/24 06:00 01/26/24 06:07 Levothyroxine 88 Mcg Tablet PO 88 mcg 0600 YUE Administration Linagliptin 5 mg 01/25/24 10:00 01/26/24 10:04 Linagliptin 5 Mg Tablet PO 5 mg DAILY YUE Administration Magnesium Citrate 300 ml 01/24/24 20:08 Magnesium Citrate 300 Ml PO DAILY PRN Constipation Melatonin 10 mg 01/26/24 07:51 Melatonin 10 Mg Tablet PO QHS PRN INSOMNIA Metformin HCl 1,000 mg 01/25/24 08:00 01/26/24 07:55 Metformin (Xr) 500 Mg Tablet PO 1,000 mg BIDCM YUE Administration Multivitamins 1 tablet 01/25/24 08:00 01/26/24 07:55 Multivitamins,Therapeutic Tablet PO 1 tablet DAILYCM YUE Administration Ibius-4-Ncyp Ethyl Esters 1 gm 01/24/24 22:00 01/26/24 10:04 [place]-3 Acid Ethyl Esters 1 Gm Capsule PO 1 gm BID YUE Administration Pioglitazone HCl 15 mg 01/25/24 10:00 01/26/24 10:03 Pioglitazone Hydrochloride 15 Mg Tablet PO 15 mg DAILY YUE Administration Pravastatin Sodium 20 mg 01/24/24 22:00 01/25/24 23:21 Pravastatin 20 Mg Tablet PO 20 mg QHS YUE Administration Saliva Substitute 15 ml 01/25/24 07:46 01/25/24 23:27 Saliva Substitute 237 Ml Bottle MUCOUS MEM 15 ml 5X/DAY PRN Administration DRY MOUTH Senna/Docusate Sodium 1 tablet 01/24/24 20:08 Senna/Docusate Sodium 1 Tablet PO BID PRN Constipation Tuberculin PPD 0.1 ml 02/01/24 10:00 Tuberculin,Purif.Prot.Deriv. 50 Tu/Ml Vial ID 02/01/24 10:01 X1 ONE Problem List (Updated 01/24/24 @ 20:[address] Wong Estevez MD) Hypothyroidism (Acute) Left hip pain (Acute) Debility (Acute) Frequent falls (Acute) Type 2 diabetes mellitus (Chronic) Hyperlipemia (Chronic) Vital Signs Temp Pulse Resp BP Pulse Ox O2 Del Method 99.0 F 85 16 142/77 H 95 Room Air 01/25/24 13:41 01/26/24 02:05 01/26/24 02:05 01/25/24 13:41 01/26/24 02:05 01/26/24 02:05 Oxygen Delivery Method Room Air Weight: 46.408 kg Body Mass Index (BMI) 19.3 Sodium 137 mmol/L (136-145) 01/25/24 05:16 Potassium 4.0 mmol/L (3.5-5.1) 01/25/24 05:16 Chloride 104 mmol/L (98-107) 01/25/24 05:16 Carbon Dioxide 25.0 mmol/L (21.0-32.0) 01/25/24 05:16 Anion Gap 8 (5-15) 01/25/24 05:16 BUN 21 mg/dL (7-18) H 01/25/24 05:16 Creatinine 0.66 mg/dL (0.55-1.02) 01/25/24 05:16 Est GFR (MDRD) Af Amer 110 mL/min (>60) 01/25/24 05:16 Est GFR (MDRD) Non-Af 91 mL/min (>60) 01/25/24 05:16 BUN/Creatinine Ratio 32.0 RATIO (10-20) H 01/25/24 05:16 Glucose 333 mg/dL (74-106) H 01/25/24 05:16 Assessment/Plan: 1. Pain: acetaminophen 1000 mg PO Q6H PRN pain (1-10). The patient has not required any PRN acetaminophen so far this admission. Please continue to monitor pain levels, PRN medication usage, and LFTs (no recent LFTs documented). 2. Bowel: senna/docusate 1 tablet PO BID PRN constipation, magnesium citrate 300 mL PO daily PRN constipation. The patient has not required any PRN doses of senna/docusate or magnesium citrate so far this admission and the patient's last bowel movement was today. Please continue to monitor for bowel movements, for PRN medication usage, for diarrhea/constipation. 3. DVT prophylaxis: enoxaparin 40 mg SC daily. Please continue to monitor for s/s of a DVT such as pain/erythema/edema in an extremity, renal function (serum creatinine = 0.66 mg/dL, creatinine clearance = ~ 36.30 mL/min on 01/25/24), as well as for bleeding/excessive bruising, hemoglobin levels (Hgb = 11.4 g/dL on 01/25/24), and platelet count (plt = 244 K/mm3). 4. Hypothyroidism: levothyroxine 88 mcg PO daily. Please continue to monitor for s/s of hypo/hyperthyroidism, and thyroid function levels (TSH = 1.98 on 01/24/24). 5. Diabetes Mellitus II: insulin lispro 10 units SC TID with meals, linagliptin 5 mg PO daily, metformin XR 1000 mg PO BID with meals, pioglitazone 15 mg PO daily. Please continue to monitor hemoglobin A1C levels (A1C = 8.4% on 01/23/24), blood glucose levels (BG range = 244-333 mg/dL), for s/s of hypo/hyperglycemia, for arthralgia, for s/s of heart failure and pancreatitis, for GI distress, GFR (GFR = 91 mL/min on 01/25/24), vitamin B12 levels (no recent vitamin B12 level documented), for edema, headache and back pain. Please consider ordering Vitamin B12 levels if clinically indicated. The patient's blood glucose levels have been elevated and the patient was just started on insulin lispro. If the patient's blood glucose levels remain elevated it may be reasonable to transition the patient over to a long-acting insulin such as 10 units of insulin glargine daily and titrate as required. 6. Hyperlipidemia: pravastatin 20 mg PO QHS, omega 3 1000 mg PO BID. Please continue to monitor for myalgias, lipid levels (no recent lipid levels documented), and for GI distress with omega 3 administration. Please consider ordering lipid levels if clinically indicated as patient does not have recent levels documented. 7. Dry mouth: saliva substitute 15 mL PO 5x/day PRN dry mouth. The patient has used 2 doses of saliva substitute so far this admission. Please continue to monitor for PRN usage and for dry mouth. 8. Rash/topical irritation: hydrocortisone 2.5% 1 application topically BID PRN rash/topical irritation. The patient has required 1 PRN dose of hydrocortisone so far this admission. Please continue to monitor for rash/topical irritation and PRN medication usage. 9. Insomnia: melatonin 10 mg PO QHS PRN insomnia. The patient has not required any PRN doses of melatonin so far this admission. Please continue to monitor for insomnia and PRN medication usage. If the patient receives inadequate relief when taking melatonin please ensure dose is administered 2 hours prior to desired sleep initiation. 10. Nutrition: multivitamin PO daily. Please continue to monitor overall nutritional status. Assessment/Plan for indications treated with psychotropic medications: NA Medical chart and medication regimen reviewed. The following medication irregularities or issues were identified: 1. Diabetes Mellitus II: insulin lispro 10 units SC TID with meals, linagliptin 5 mg PO daily, metformin XR 1000 mg PO BID with meals, pioglitazone 15 mg PO stacy ly. Please consider ordering Vitamin B12 levels if clinically indicated. The patient's blood glucose levels have been elevated and the patient was just started on insulin lispro. If the patient's blood glucose levels remain elevated it may be reasonable to transition the patient over to a long-acting insulin such as 10 units of insulin glargine daily and titrate as required. 2. Hyperlipidemia: pravastatin 20 mg PO QHS, omega 3 1000 mg PO BID. Please consider ordering lipid levels if clinically indicated as patient does not have recent levels documented. Date Date of Note:: 01/26/24 Documented by User: Dr. Wong Estevez MD 01/26/24 11:40 TCU RX Drug Regimen Review Provider Comments Provider responsibility Provider Comments to Recommendations by Pharmacy: Agree
--- NOTE | 2024-01-26 11:28 | CASEMGMT ---
Social Work Met with patient to complete initial assessment. Introduced self and role. Verified contacts. Patient confirmed code status as full code. Pt does have DPOAHC and Living Will in chart. Educated to [employer] benefits with NRD 01/31/24 and continued stay is not guaranteed with each review. Pt's goal is to return to independent living. SW will continue to follow for DC planning. Patient did ask for resources on home delivered meals and medic alert. She stated her family wants her to get these things. SW will provide resources. VIVIAN Babin
[2024-01-26 12:08] LABS: Bedside Glucose 179 mg/dL (74-106)
[2024-01-26 12:35] LABS: Cholesterol 250 mg/dL (200); High Density Lipoprotein 89 mg/dL; Triglycerides 182 mg/dL; Very Low Density Lipoprotein 36 mg/dL (5-40)
--- NOTE | 2024-01-26 13:37 | NURSING ---
Provisioning Specialist Note; Activity Asset: Rosi Larsen is independent in her choice of daily activities. She stated she has everting she needs and her son is bringing in her WIFI box. She enjoys reading history books. Suzie's fishing hand will visit with her so stated she will not need or entry processor and did not want the therapy dog. Staff will remind her of weekly activities and respect her right to say no.
[2024-01-26] MEDS: Acetaminophen 500 MG Tablet 1000 MG PO (15:33)
[2024-01-26 16:00] VITALS: BP 132/74; PULSE 101; RESP 12; TEMP 36.7; O2SAT 96
[2024-01-26 17:42] LABS: Bedside Glucose 251 mg/dL (74-106)
[2024-01-26] MEDS: MELATONIN 10 MG TABLET PO (20:03)
[2024-01-26] MEDS: Pravastatin 20 MG Tablet PO (20:03)
--- NOTE | 2024-01-26 20:17 | NURSING ---
Patient requests HS meds and accucheck at this time, requests PRN Melatonin to promote sleep.
[2024-01-26 20:30] LABS: Bedside Glucose 186 mg/dL (74-106)
[2024-01-27] MEDS: Enoxaparin 40 MG/0.4 ML Syringe SC (06:12)
[2024-01-27] MEDS: Levothyroxine 88 MCG Tablet PO (06:12)
[2024-01-27 06:35] LABS: Bedside Glucose 307 mg/dL (74-106)
[2024-01-27 08:28] VITALS: BP 126/61; PULSE 92; RESP 18; O2SAT 93
[2024-01-27] MEDS: Insulin Lispro 100 UNIT/ML INSULN.PEN 10 UNIT SC (08:31)
[2024-01-27] MEDS: Omega-3 Acid Ethyl Esters 1 GM Capsule PO (08:32)
[2024-01-27] MEDS: Multivitamins,Therapeutic Tablet 1 TABLET PO (08:33)
[2024-01-27] MEDS: LINAGLIPTIN 5 MG TABLET PO (08:33)
[2024-01-27] MEDS: metFORMIN (XR) 500 MG Tablet 1000 MG PO ×2 (08:33→18:35)
[2024-01-27] MEDS: Pioglitazone Hydrochloride 15 MG Tablet PO (08:34)
[2024-01-27 11:50] LABS: Bedside Glucose 192 mg/dL (74-106)
[2024-01-27] MEDS: Insulin Lispro 100 UNIT/ML INSULN.PEN 13 UNIT SC ×2 (12:56→18:35)
[2024-01-27 16:00] VITALS: TEMP 36.3
--- NOTE | 2024-01-27 16:42 | NURSING ---
Addendum entered by Demetria Reaves 01/27/24 17:13: Pt denies malaise, asymptomatic. FSBS now 138. Pt in pleasant mood, no complaints at this time. Original Note: PULP REFINER OPERATOR notifies that FSBS is 68. Pt asymptomatic, currently eating peanut butter crackers and drinking OJ. Will recheck in 20-30min.
[2024-01-27 17:07] LABS: Bedside Glucose 68 mg/dL (74-106)
[2024-01-27 17:29] LABS: Bedside Glucose 135 mg/dL (74-106)
[2024-01-27 18:59] LABS: Bedside Glucose 183 mg/dL (74-106)
[2024-01-27] MEDS: MELATONIN 10 MG TABLET PO (21:44)
[2024-01-27] MEDS: Pravastatin 20 MG Tablet PO (21:44)
[2024-01-27 21:48] LABS: Bedside Glucose 179 mg/dL (74-106)
[2024-01-27] MEDS: Acetaminophen 500 MG Tablet 1000 MG PO (21:49)
[2024-01-27 22:00] VITALS: BP 141/69; PULSE 74
[2024-01-28] MEDS: Levothyroxine 88 MCG Tablet PO (06:19)
[2024-01-28] MEDS: Enoxaparin 40 MG/0.4 ML Syringe SC (06:19)
[2024-01-28 06:28] LABS: Bedside Glucose 273 mg/dL (74-106)
[2024-01-28 09:00] VITALS: BP 123/65; PULSE 98; RESP 18; TEMP 37.1; O2SAT 98
[2024-01-28] MEDS: Insulin Lispro 100 UNIT/ML INSULN.PEN 13 UNIT SC (09:01)
[2024-01-28] MEDS: Omega-3 Acid Ethyl Esters 1 GM Capsule PO ×2 (09:02→21:46)
[2024-01-28] MEDS: metFORMIN (XR) 500 MG Tablet 1000 MG PO ×2 (09:03→18:01)
[2024-01-28] MEDS: Multivitamins,Therapeutic Tablet 1 TABLET PO (09:03)
[2024-01-28] MEDS: LINAGLIPTIN 5 MG TABLET PO (09:03)
[2024-01-28] MEDS: Pioglitazone Hydrochloride 15 MG Tablet PO (09:03)
[2024-01-28 11:11] LABS: Bedside Glucose 312 mg/dL (74-106)
[2024-01-28] MEDS: Insulin Lispro 100 UNIT/ML INSULN.PEN 10 UNIT SC ×2 (12:13→18:02)
[2024-01-28 16:34] LABS: Bedside Glucose 96 mg/dL (74-106)
[2024-01-28 21:34] LABS: Bedside Glucose 129 mg/dL (74-106)
[2024-01-28] MEDS: Pravastatin 20 MG Tablet PO (21:46)
[2024-01-29] MEDS: Enoxaparin 40 MG/0.4 ML Syringe SC (05:47)
[2024-01-29] MEDS: Levothyroxine 88 MCG Tablet PO (05:47)
[2024-01-29 06:40] LABS: Bedside Glucose 241 mg/dL (74-106)
[2024-01-29] MEDS: Insulin Lispro 100 UNIT/ML INSULN.PEN 10 UNIT SC ×3 (06:48→17:39)
--- NOTE | 2024-01-29 09:04 | NURSING ---
Offered covid vaccine, VIS provided. Patient refuses at this time.
[2024-01-29] MEDS: LINAGLIPTIN 5 MG TABLET PO (09:15)
[2024-01-29] MEDS: Omega-3 Acid Ethyl Esters 1 GM Capsule PO ×2 (09:15→21:53)
[2024-01-29] MEDS: metFORMIN (XR) 500 MG Tablet 1000 MG PO ×2 (09:16→17:39)
[2024-01-29] MEDS: Multivitamins,Therapeutic Tablet 1 TABLET PO (09:16)
[2024-01-29] MEDS: Pioglitazone Hydrochloride 15 MG Tablet PO (09:16)
[2024-01-29 11:13] LABS: Bedside Glucose 241 mg/dL (74-106)
[2024-01-29 16:00] VITALS: BP 134/78; PULSE 76; RESP 14; TEMP 36.6; O2SAT 94
[2024-01-29 17:03] LABS: Bedside Glucose 196 mg/dL (74-106)
[2024-01-29 20:00] VITALS: BP 118/71; PULSE 91; RESP 17; TEMP 36.6; O2SAT 95
[2024-01-29] MEDS: Pravastatin 20 MG Tablet PO (21:52)
[2024-01-29] MEDS: Acetaminophen 500 MG Tablet 1000 MG PO (21:52)
[2024-01-29] MEDS: Hydrocortisone 2.5% Ointment 20 gm tube 1 APPLIC TOPICAL (21:55)
[2024-01-29 22:01] LABS: Bedside Glucose 154 mg/dL (74-106)
[2024-01-30] MEDS: Levothyroxine 88 MCG Tablet PO (05:48)
[2024-01-30] MEDS: Enoxaparin 40 MG/0.4 ML Syringe SC (05:48)
[2024-01-30 06:40] LABS: Bedside Glucose 269 mg/dL (74-106)
[2024-01-30] MEDS: Insulin Lispro 100 UNIT/ML INSULN.PEN 10 UNIT SC (06:55)
[2024-01-30 07:00] VITALS: BP 134/71; PULSE 85; RESP 16; TEMP 36.6; O2SAT 92
[2024-01-30] MEDS: Multivitamins,Therapeutic Tablet 1 TABLET PO (08:33)
[2024-01-30] MEDS: Omega-3 Acid Ethyl Esters 1 GM Capsule PO ×2 (08:33→22:23)
[2024-01-30] MEDS: Pioglitazone Hydrochloride 15 MG Tablet PO (08:33)
[2024-01-30] MEDS: metFORMIN (XR) 500 MG Tablet 1000 MG PO ×2 (08:33→16:54)
[2024-01-30] MEDS: LINAGLIPTIN 5 MG TABLET PO (08:33)
[2024-01-30] MEDS: Acetaminophen 500 MG Tablet 1000 MG PO (08:36)
[2024-01-30] MEDS: Hydrocortisone 2.5% Ointment 20 gm tube 1 APPLIC TOPICAL (09:42)
[2024-01-30] MEDS: Insulin Lispro 100 UNIT/ML INSULN.PEN 12 UNIT SC ×2 (11:31→17:47)
[2024-01-30 11:44] LABS: Bedside Glucose 166 mg/dL (74-106)
[2024-01-30 16:00] VITALS: BP 116/74; PULSE 91; RESP 14; TEMP 36.6; O2SAT 94
[2024-01-30 17:36] LABS: Bedside Glucose 240 mg/dL (74-106)
[2024-01-30 21:46] LABS: Bedside Glucose 73 mg/dL (74-106)
[2024-01-30] MEDS: MELATONIN 10 MG TABLET PO (22:23)
[2024-01-30] MEDS: Pravastatin 20 MG Tablet PO (22:23)
[2024-01-30] MEDS: Saliva Substitute 237 ML BOTTLE 15 ML MUCOUS MEM (22:27)
[2024-01-30 22:53] LABS: Bedside Glucose 80 mg/dL (74-106)
--- NOTE | 2024-01-31 03:37 | NURSING ---
patient requests RTN muscle relaxer at for LLE muscle spasms, written communication left for Dr. Estevez regarding patient request.
[2024-01-31 03:44] VITALS: PULSE 99; RESP 18; O2SAT 95
[2024-01-31] MEDS: Enoxaparin 40 MG/0.4 ML Syringe SC (06:14)
[2024-01-31] MEDS: Levothyroxine 88 MCG Tablet PO (06:14)
[2024-01-31 06:26] LABS: Bedside Glucose 299 mg/dL (74-106)
[2024-01-31] MEDS: LINAGLIPTIN 5 MG TABLET PO (08:31)
[2024-01-31] MEDS: Pioglitazone Hydrochloride 15 MG Tablet PO (08:31)
[2024-01-31] MEDS: metFORMIN (XR) 500 MG Tablet 1000 MG PO ×2 (08:31→17:53)
[2024-01-31] MEDS: Omega-3 Acid Ethyl Esters 1 GM Capsule PO ×2 (08:31→21:06)
[2024-01-31] MEDS: Multivitamins,Therapeutic Tablet 1 TABLET PO (08:31)
[2024-01-31] MEDS: Insulin Lispro 100 UNIT/ML INSULN.PEN 12 UNIT SC (08:31)
[2024-01-31 08:45] VITALS: BP 122/78; PULSE 94; RESP 16; TEMP 36.6; O2SAT 92
--- NOTE | 2024-01-31 09:33 | NURSING ---
Internet Marketing Consultant Note; MDS for 01/31/2024 Complete
--- NOTE | 2024-01-31 11:19 | CASEMGMT ---
Social Work IDT met with patient, son, and DIL at bedside to complete care plan. Discussed patient progress in therapy, PT/OT/ST. SW educated patient and family of [employer] insurance next review date: 01/31/24; currently pending response. Patient was notified that continued stay is not guaranteed. Patient informed SW that goal for transition of care is to return home independently. SW discussed therapy recommendation for home health care v. outpatient therapy. Patient informed SW that she had [facility] in the past. Patient would like to utilize home health care services via [facility] upon discharge. Patient denies any other concerns for resources. family goals align with patient goal to return home with therapeutic improvements. SW will continue to follow to assist with discharge planning. JAY Frederick
[2024-01-31 11:37] LABS: Bedside Glucose 183 mg/dL (74-106)
[2024-01-31] MEDS: Glucerna Shake 120 ML LIQUID PO (12:02)
[2024-01-31] MEDS: Insulin Lispro 100 UNIT/ML INSULN.PEN 10 UNIT SC ×2 (12:02→17:52)
--- NOTE | 2024-01-31 12:08 | NURSING ---
PT requesting that she only get Glucerna in AM around 0800. states that is how she does it at home. order changed from TID to daily per pt home regimen. pt eats most all of her meals.
[2024-01-31] MEDS: Menthol/Lanolin/Calamine/Znox 113 GM Tube 1 APPLIC TOPICAL ×2 (14:16→21:06)
[2024-01-31 16:55] LABS: Bedside Glucose 101 mg/dL (74-106)
[2024-01-31 17:17] VITALS: BMI 20.2
--- NOTE | 2024-01-31 18:02 | NURSING ---
All staff have attempted to pt many requests and needs throughtout the shift and pt continues to have new complaints & fixates on many things. for example, she feels Doctor is not managing her insulin like her PCP/brass finisher. Educated pt on fluctuations of blood sugar can happen while hospitalized. blood sugar was 101 this evening before supper and pt felt that was too low. Explained to pt that she is eating now and that her blood sugar will be checked again at HS and Dr will be notified and any concerns of too low or too high. kpad given for c/o back pain, pt sitting in WC which is much better per her statements. pt was complaining that recliner not comfortable. pt feels she is not getting better. pt is able to ambulate to and from BR with walker, walked part of the way to therapy. Explained to pt that she fell and bruised her rt hip and older bones/joints do not heal as fast as they did at a younger age. call light in reach. coffee given per her request as well.
[2024-01-31] MEDS: Pravastatin 20 MG Tablet PO (21:05)
[2024-01-31] MEDS: Baclofen 10 MG Tablet 5 MG PO (21:05)
[2024-01-31] MEDS: MELATONIN 10 MG TABLET PO (21:08)
[2024-01-31 22:27] LABS: Bedside Glucose 85 mg/dL (74-106)
[2024-02-01] MEDS: Enoxaparin 40 MG/0.4 ML Syringe SC (05:14)
[2024-02-01] MEDS: Levothyroxine 88 MCG Tablet PO (05:14)
[2024-02-01 05:58] LABS: Absolute Lymphocyte Count 1.05 X10^3/uL (0.83-4.51); Absolute Neutrophil Count 3.4 X10^3/uL (2.0-7.7); Basophil# 0.04 X10^3/uL; Basophil% 0.8 % (0-1); Eosinophil# 0.09 X10^3/uL; Eosinophils% 1.7 % (0-5); Hematocrit 35.7 % (37-47); Hemoglobin 11.4 g/dL (12.0-15.0); Lymphocyte # 1.05 X10^3/ul (0.83-4.51); Lymphocyte % 20.4 % (19-41); Mean Corp Hgb Conc 31.9 g/dL (32-36); Mean Corpuscular Hgb 30.6 pg (27.0-32.0); Mean Corpuscular Volume 95.7 fL (81-99); Mean Platelet Vol. 8.9 fl (6.2-12.0); Monocyte# 0.51 X10^3/uL; Monocyte% 9.9 % (0-10); NRBC Flagged by Analyzer 0 % (0-5); Neutrophil # 3.35 X10^3/uL (2.7-7.7); Neutrophil % 65.1 % (47-70); Platelet Count 419 K/mm3 (150-450); RBC Distribution Width CV 12.1 % (11.6-14.6); RBC Distribution Width SD 42.1 fl (35.1-43.9); Red Blood Count 3.73 M/mm3 (4.2-5.4); White Blood Count 5.2 K/mm3 (4.4-11.0)
[2024-02-01 06:43] LABS: Bedside Glucose 241 mg/dL (74-106)
[2024-02-01 06:45] LABS: Anion Gap 4 (5-15); BUN 19 mg/dL (7-18); BUN/Creat Ratio 31.8 RATIO (10-20); Calcium,Total 8.9 mg/dL (8.5-10.1); Chloride 99 mmol/L (98-107); EST Glomerular Filtration Rate 101 mL/min (>60); Est Glom Filt Rate - Afr Amer 122 mL/min (>60); Estimated Creatinine Clearance 37.39 ml/min; Glucose 260 mg/dL (74-106); Potassium 4.3 mmol/L (3.5-5.1); Sodium Level 134 mmol/L (136-145)
[2024-02-01] MEDS: Insulin Lispro 100 UNIT/ML INSULN.PEN 10 UNIT SC ×3 (09:48→18:33)
[2024-02-01] MEDS: Hydrocortisone 2.5% Ointment 20 gm tube 1 APPLIC TOPICAL (09:49)
[2024-02-01 11:09] VITALS: BP 141/67; PULSE 88; RESP 18; TEMP 36.6; O2SAT 96
[2024-02-01] MEDS: Glucerna Shake 120 ML LIQUID PO (11:11)
[2024-02-01] MEDS: LINAGLIPTIN 5 MG TABLET PO (11:11)
[2024-02-01] MEDS: Multivitamins,Therapeutic Tablet 1 TABLET PO (11:11)
[2024-02-01] MEDS: metFORMIN (XR) 500 MG Tablet 1000 MG PO ×2 (11:11→18:33)
[2024-02-01] MEDS: Omega-3 Acid Ethyl Esters 1 GM Capsule PO ×2 (11:11→21:48)
[2024-02-01] MEDS: Pioglitazone Hydrochloride 15 MG Tablet PO (11:11)
[2024-02-01] MEDS: Tuberculin,Purif.prot.deriv. 50 TU/ML Vial 0.1 ML ID (11:12)
[2024-02-01] MEDS: Menthol/Lanolin/Calamine/Znox 113 GM Tube 1 APPLIC TOPICAL ×2 (11:14→21:49)
[2024-02-01 11:32] LABS: Bedside Glucose 347 mg/dL (74-106)
[2024-02-01 17:08] LABS: Bedside Glucose 82 mg/dL (74-106)
[2024-02-01] MEDS: Baclofen 10 MG Tablet 5 MG PO (21:48)
[2024-02-01] MEDS: Pravastatin 20 MG Tablet PO (21:48)
[2024-02-01 22:15] LABS: Bedside Glucose 86 mg/dL (74-106)
[2024-02-02] MEDS: Acetaminophen 500 MG Tablet 1000 MG PO ×2 (00:18→22:21)
[2024-02-02 06:28] LABS: Bedside Glucose 269 mg/dL (74-106)
[2024-02-02] MEDS: Enoxaparin 40 MG/0.4 ML Syringe SC (06:40)
[2024-02-02] MEDS: Levothyroxine 88 MCG Tablet PO (06:40)
[2024-02-02] MEDS: Glucerna Shake 120 ML LIQUID PO (06:42)
[2024-02-02] MEDS: Insulin Lispro 100 UNIT/ML INSULN.PEN 10 UNIT SC ×2 (08:25→17:37)
[2024-02-02] MEDS: LINAGLIPTIN 5 MG TABLET PO (08:26)
[2024-02-02] MEDS: metFORMIN (XR) 500 MG Tablet 1000 MG PO ×2 (08:26→17:36)
[2024-02-02] MEDS: Omega-3 Acid Ethyl Esters 1 GM Capsule PO ×2 (08:26→22:22)
[2024-02-02] MEDS: Menthol/Lanolin/Calamine/Znox 113 GM Tube 1 APPLIC TOPICAL (08:27)
[2024-02-02] MEDS: Multivitamins,Therapeutic Tablet 1 TABLET PO (08:27)
[2024-02-02] MEDS: Pioglitazone Hydrochloride 15 MG Tablet PO (08:27)
[2024-02-02] MEDS: Hydrocortisone 2.5% Ointment 20 gm tube 1 APPLIC TOPICAL (08:27)
[2024-02-02 12:12] LABS: Bedside Glucose 116 mg/dL (74-106)
[2024-02-02 14:17] VITALS: BP 98/54; PULSE 87
[2024-02-02 15:21] VITALS: BP 121/61; PULSE 90; RESP 17; TEMP 36.2
[2024-02-02 16:43] LABS: Bedside Glucose 266 mg/dL (74-106)
[2024-02-02] MEDS: Baclofen 10 MG Tablet 5 MG PO (22:22)
[2024-02-02] MEDS: Pravastatin 20 MG Tablet PO (22:22)
[2024-02-02 23:42] LABS: Bedside Glucose 92 mg/dL (74-106)
[2024-02-03] MEDS: Enoxaparin 40 MG/0.4 ML Syringe SC (05:57)
[2024-02-03] MEDS: Levothyroxine 88 MCG Tablet PO (05:57)
[2024-02-03 06:35] LABS: Bedside Glucose 273 mg/dL (74-106)
[2024-02-03] MEDS: Glucerna Shake 120 ML LIQUID PO (08:23)
[2024-02-03] MEDS: Pioglitazone Hydrochloride 15 MG Tablet PO (08:24)
[2024-02-03] MEDS: Multivitamins,Therapeutic Tablet 1 TABLET PO (08:25)
[2024-02-03] MEDS: metFORMIN (XR) 500 MG Tablet 1000 MG PO ×2 (08:25→18:36)
[2024-02-03] MEDS: Menthol/Lanolin/Calamine/Znox 113 GM Tube 1 APPLIC TOPICAL ×2 (08:25→20:54)
[2024-02-03] MEDS: Omega-3 Acid Ethyl Esters 1 GM Capsule PO ×2 (08:25→20:53)
[2024-02-03] MEDS: LINAGLIPTIN 5 MG TABLET PO (08:25)
[2024-02-03] MEDS: Insulin Lispro 100 UNIT/ML INSULN.PEN 10 UNIT SC ×3 (08:28→18:36)
[2024-02-03 08:34] VITALS: BP 130/65; PULSE 93; RESP 16; TEMP 36.6; O2SAT 92
--- NOTE | 2024-02-03 08:39 | NURSING ---
Entered room to administer meds, started naming off meds and when this nurse stated Glucerna due pt began complaining, your giving that to me now after eating brkfst. Reminded pt that she was the one who requested 8AM for the time of administration just like at home. but then I will have to pee This nurse offered to change it to 10am but she will still probably have to pee after it then too. no, just give it to me now pt then asked if she can have it at bedtime. Changed time to 2100 on DEC. pt satisfied with this timing on DEC. Explained that nursing staff will administer but they have 1 hour before and after 9pm to administer depending on other patients needs on floor. pt verbalized understanding. Pt noted to have many complaints on a daily basis and very difficult to satisfy her requests/complaints d/t her indecisiveness. pt also complained about her insulin regimen at home is 3-4 units & not the 10 units of insulin she is receiving here. pt blood sugars have been in the mid 200's. pt states i feel better when they are up there pt states her project management manager told her not to worry about the numbers.
[2024-02-03 12:11] LABS: Bedside Glucose 254 mg/dL (74-106)
[2024-02-03 17:42] LABS: Bedside Glucose 68 mg/dL (74-106)
--- NOTE | 2024-02-03 18:38 | NURSING ---
Addendum entered by Suzie Schaefer 02/03/24 19:31: pt also stated I wanna get out of here Asked pt if she felt like she was ready to go home. pt stated oh I am not ready yet Original Note: PT c/o that therapy was not helpful today. she should of just stayed home with her grandkids Asked pt what she had to do for therapy. stated she walked out to [employer] and over to the books, I have my own books at home then she used a leg electronic equipment repairmen that did not work pt resting in bed, HOB elevated. call light in reach. rechecked BS 177 since BS was 68 before meal. administered medications as ordered.
[2024-02-03 18:59] LABS: Bedside Glucose 177 mg/dL (74-106)
[2024-02-03] MEDS: Pravastatin 20 MG Tablet PO (20:53)
[2024-02-03] MEDS: Baclofen 10 MG Tablet 5 MG PO (20:53)
[2024-02-03] MEDS: MELATONIN 10 MG TABLET PO (20:59)
[2024-02-03 22:00] VITALS: PULSE 92; RESP 16; O2SAT 93
[2024-02-03 22:15] LABS: Bedside Glucose 77 mg/dL (74-106)
[2024-02-04] MEDS: Levothyroxine 88 MCG Tablet PO (05:37)
[2024-02-04] MEDS: Enoxaparin 40 MG/0.4 ML Syringe SC (05:37)
[2024-02-04 05:56] VITALS: PULSE 83; RESP 18; O2SAT 98
[2024-02-04 06:39] LABS: Bedside Glucose 236 mg/dL (74-106)
[2024-02-04 09:07] VITALS: BP 116/59; PULSE 85; RESP 16; TEMP 36.9; O2SAT 94
[2024-02-04] MEDS: Pioglitazone Hydrochloride 15 MG Tablet PO (09:09)
[2024-02-04] MEDS: Multivitamins,Therapeutic Tablet 1 TABLET PO (09:09)
[2024-02-04] MEDS: metFORMIN (XR) 500 MG Tablet 1000 MG PO ×2 (09:09→17:59)
[2024-02-04] MEDS: LINAGLIPTIN 5 MG TABLET PO (09:09)
[2024-02-04] MEDS: Omega-3 Acid Ethyl Esters 1 GM Capsule PO ×2 (09:09→20:19)
[2024-02-04] MEDS: Menthol/Lanolin/Calamine/Znox 113 GM Tube 1 APPLIC TOPICAL ×2 (09:09→20:18)
[2024-02-04] MEDS: Insulin Lispro 100 UNIT/ML INSULN.PEN 10 UNIT SC ×2 (09:10→12:29)
[2024-02-04 11:37] LABS: Bedside Glucose 189 mg/dL (74-106)
--- NOTE | 2024-02-04 16:18 | NURSING ---
Addendum entered by Suzie Schaefer 02/04/24 16:48: DR WAY NOTIFIED, NEW ORDER TO CHANGE HUMALOG 5 UNITS TIDAC. Original Note: PT BLOOD SUGAR 50, PT DIAPHORETIC. OJ GIVEN, RECHECKED 42 THEN PEANUT BUTTER AND JUAN CARLOS CRACKERS GIVEN WITH MUCH ENCOURAGEMENT TO GET PT TO EAT IT. PT ATE MOST OF IT, RECHECKED AT 99. WILL UPDATE DR WAY. PT UP IN CHAIR DENIES ANY ISSUES. CALL LIGHT IN REACH.
[2024-02-04 16:24] LABS: Bedside Glucose 42 mg/dL (74-106)
[2024-02-04 16:24] LABS: Bedside Glucose 50 mg/dL (74-106)
[2024-02-04 16:34] LABS: Bedside Glucose 99 mg/dL (74-106)
[2024-02-04 17:12] LABS: Bedside Glucose 99 mg/dL (74-106)
--- NOTE | 2024-02-04 18:00 | NURSING ---
pt blood sugar 99 did not want insulin tonight. pt ate all of supper lasagna & garlic bread. metformin given as ordered.
[2024-02-04] MEDS: MELATONIN 10 MG TABLET PO (20:17)
[2024-02-04] MEDS: Glucerna Shake 120 ML LIQUID PO (20:17)
[2024-02-04] MEDS: Pravastatin 20 MG Tablet PO (20:19)
[2024-02-04] MEDS: Baclofen 10 MG Tablet 5 MG PO (20:19)
[2024-02-04 22:09] LABS: Bedside Glucose 284 mg/dL (74-106)
[2024-02-05] MEDS: Levothyroxine 88 MCG Tablet PO (06:09)
[2024-02-05] MEDS: Enoxaparin 40 MG/0.4 ML Syringe SC (06:09)
[2024-02-05 06:19] LABS: Bedside Glucose 264 mg/dL (74-106)
[2024-02-05] MEDS: Multivitamins,Therapeutic Tablet 1 TABLET PO (08:02)
[2024-02-05] MEDS: Pioglitazone Hydrochloride 15 MG Tablet PO (08:02)
[2024-02-05] MEDS: metFORMIN (XR) 500 MG Tablet 1000 MG PO ×2 (08:02→17:39)
[2024-02-05] MEDS: LINAGLIPTIN 5 MG TABLET PO (08:02)
[2024-02-05] MEDS: Insulin Lispro 100 UNIT/ML INSULN.PEN SC ×3 (08:02→17:39)
[2024-02-05] MEDS: Menthol/Lanolin/Calamine/Znox 113 GM Tube 1 APPLIC TOPICAL ×2 (08:04→21:04)
[2024-02-05] MEDS: Omega-3 Acid Ethyl Esters 1 GM Capsule PO ×2 (10:32→21:04)
[2024-02-05 12:08] LABS: Bedside Glucose 223 mg/dL (74-106)
[2024-02-05 13:54] VITALS: BP 126/65; PULSE 85; RESP 14; TEMP 36.6; O2SAT 99
[2024-02-05 16:58] LABS: Bedside Glucose 169 mg/dL (74-106)
[2024-02-05] MEDS: Pravastatin 20 MG Tablet PO (21:04)
[2024-02-05] MEDS: Baclofen 10 MG Tablet 5 MG PO (21:04)
[2024-02-05] MEDS: MELATONIN 10 MG TABLET PO (21:06)
[2024-02-05 22:05] LABS: Bedside Glucose 121 mg/dL (74-106)
[2024-02-06] MEDS: Enoxaparin 40 MG/0.4 ML Syringe SC (05:52)
[2024-02-06] MEDS: Levothyroxine 88 MCG Tablet PO (05:52)
[2024-02-06 07:07] LABS: Bedside Glucose 262 mg/dL (74-106)
--- NOTE | 2024-02-06 07:57 | MDS.RN ---
Information for the MDS was obtained from review of the clinical record, interview of resident, staff, and direct observation of resident?s care.
[2024-02-06] MEDS: Pioglitazone Hydrochloride 15 MG Tablet PO (08:11)
[2024-02-06] MEDS: Multivitamins,Therapeutic Tablet 1 TABLET PO (08:11)
[2024-02-06] MEDS: Insulin Lispro 100 UNIT/ML INSULN.PEN SC ×3 (08:11→17:14)
[2024-02-06] MEDS: metFORMIN (XR) 500 MG Tablet 1000 MG PO ×2 (08:11→17:14)
[2024-02-06] MEDS: Omega-3 Acid Ethyl Esters 1 GM Capsule PO ×2 (08:12→20:22)
[2024-02-06] MEDS: LINAGLIPTIN 5 MG TABLET PO (08:12)
[2024-02-06 09:09] VITALS: BMI 19.7
[2024-02-06 11:13] LABS: Bedside Glucose 310 mg/dL (74-106)
[2024-02-06] MEDS: Menthol/Lanolin/Calamine/Znox 113 GM Tube 1 APPLIC TOPICAL ×2 (11:34→20:21)
[2024-02-06 13:30] VITALS: BP 138/84; PULSE 94; RESP 18; TEMP 37; O2SAT 96
[2024-02-06 17:13] LABS: Bedside Glucose 337 mg/dL (74-106)
[2024-02-06] MEDS: Baclofen 10 MG Tablet 5 MG PO (20:21)
[2024-02-06] MEDS: Pravastatin 20 MG Tablet PO (20:22)
[2024-02-06] MEDS: MELATONIN 10 MG TABLET PO (20:26)
[2024-02-06 21:44] LABS: Bedside Glucose 140 mg/dL (74-106)
[2024-02-07] MEDS: Enoxaparin 40 MG/0.4 ML Syringe SC (05:43)
[2024-02-07] MEDS: Levothyroxine 88 MCG Tablet PO (05:43)
[2024-02-07] MEDS: Glucerna Shake 120 ML LIQUID PO (05:43)
[2024-02-07 06:29] LABS: Bedside Glucose 272 mg/dL (74-106)
[2024-02-07] MEDS: Multivitamins,Therapeutic Tablet 1 TABLET PO (08:08)
[2024-02-07] MEDS: metFORMIN (XR) 500 MG Tablet 1000 MG PO ×2 (08:08→17:39)
[2024-02-07] MEDS: Omega-3 Acid Ethyl Esters 1 GM Capsule PO ×2 (08:08→20:22)
[2024-02-07] MEDS: LINAGLIPTIN 5 MG TABLET PO (08:08)
[2024-02-07] MEDS: Pioglitazone Hydrochloride 15 MG Tablet PO (08:08)
[2024-02-07] MEDS: Insulin Lispro 100 UNIT/ML INSULN.PEN 7 UNIT SC ×3 (08:08→17:36)
[2024-02-07] MEDS: Menthol/Lanolin/Calamine/Znox 113 GM Tube 1 APPLIC TOPICAL ×2 (08:09→20:23)
[2024-02-07 11:16] LABS: Bedside Glucose 166 mg/dL (74-106)
[2024-02-07 13:43] VITALS: BP 120/69; PULSE 90; RESP 16; TEMP 36.6; O2SAT 95
[2024-02-07 16:35] LABS: Bedside Glucose 143 mg/dL (74-106)
--- NOTE | 2024-02-07 17:42 | PCM.DC.SUM ---
Providers Date of Admission: 01/24/24 Primary Care Physician: Dr. Kate Feldman MD Reason For Visit: DEBILITY Diagnosis Discharge Diagnosis (1) Debility: Status: Acute Code(s): R53.81 - Other malaise (2) Frequent falls: Status: Acute Code(s): R29.6 - Repeated falls (3) Left hip pain: Status: Acute Code(s): M25.552 - Pain in left hip (4) Type 2 diabetes mellitus: Status: Chronic Code(s): E11.9 - Type 2 diabetes mellitus without complications (5) Hyperlipemia: Status: Chronic Code(s): E78.5 - Hyperlipidemia, unspecified (6) Hypothyroidism: Status: Acute Code(s): E03.9 - Hypothyroidism, unspecified Plan 89 year old female with below past medical history hospitalized for fall, left hip contusion, admitted to TCU with debility, here for rehabilitation, strengthening, prior to discharge home alone. Debility - PT/OT. Pain - Tylenol 1000mg q6 prn pain (1-10). Bowel - senna/colace 1 tablet bid prn, Magnesium citrate 300ml daily prn. Adult immunization - Administer pneumonia vaccine, covid vaccine, flu vaccine as appropriate. DVT prophylaxis - Lovenox 40mg sc daily. Hypothyroidism - Levothyroxine 88mcg daily. Diabetes Mellitus II - A1c 8.4, Metformin XR 1000mg bidcm, Tradjenta 5mg daily, [place]iston 15mg daily. Nutrition - MVI 1 tablet daily. Hyperlipidemia - Pravastatin 20mg qhs, [place] 3 1gm bid. Medications at Discharge Home Medications multivitamin with folic acid 400 mcg tablet 1 tab PO DAILY Supplement 02/27/17 omega-3 fatty acids-fish oil 340 mg-1,000 mg capsule 1 ea PO BID Supplement 02/27/17 pravastatin 20 mg tablet 20 mg PO QHS Cholesterol 02/27/17 biotin 10,000 mcg capsule 10,000 mcg PO DAILY Supplement 01/11/18 levothyroxine 88 mcg tablet 88 mcg PO DAILY disorder of thyroid gland 01/22/24 metformin 500 mg 24 hr tablet,extended release (gastric retention) 1,000 mg PO BID Diabetes 01/22/24 pioglitazone 15 mg tablet 15 mg PO DAILY Diabetes 01/22/24 sitagliptin phosphate 50 mg tablet (Januvia) 50 mg PO DAILY Diabetes 01/22/24 baclofen 10 mg tablet 5 mg (1/2 x 10 mg) PO QHS 30 days #15 tabs 02/07/24 insulin lispro 100 unit/mL subcutaneous pen (Humalog KwikPen (U-100) Insulin) 7 unit (0.07 mL) subcut TIDAC #0 mL 02/07/24 Hospital Course Operations None Procedures None Summary of Care Provided Minutes Spent on Discharge: 35 Hospital Course: 89 year old female with below past medical history hospitalized for fall, left hip contusion, admitted to TCU with debility, here for rehabilitation, strengthening, prior to discharge home alone. Discharge home alone 02/10/2024, [facility] PT/OT. Physical Exam Const alert General Appearance: cooperative HEENT normocephalic Eyes PERRL and EOMs intact bilaterally Neck supple, no JVD and no carotid bruits Resp normal respiratory effort, normal air movement and clear to auscultation bilaterally Cardio regular rate and regular rhythm GI normal to inspection, nondistended, normoactive bowel sounds, non-tender and non-distended Extremity normal capillary refill General Extremity: Negative for edema Skin no rashes or lesions noted General Skin Exam: no breakdown Psych affect normal Appearance: appropriate Weight / BMI Weight Weight: 47.4 kg Body Mass Index (BMI) 19.7 ABG / Lab / Microbiology Data 02/01/24 05:22 02/01/24 05:22 Laboratory: Laboratory Results - last 24 hr 02/06/24 21:24: POC Glucose 140 H 02/07/24 06:06: POC Glucose 272 H 02/07/24 10:56: POC Glucose 166 H 02/07/24 16:04: POC Glucose 143 H D/C Instructions Discharge Diet: No restrictions Discharge Activity: Return to Normal Activity, May Shower and Use Walker Weight Bearing Status: Weight bearing as tolerated Call your doctor if you observe: Fever of 101 or Higher, Inability to urinate, Inability to have a bowel movement, Shortness of breath, Dizziness, Fainting spells, Swelling in the ankles, Chest pain and Uncontrolled pain Additional Instructions: Discharge home alone 02/10/2024, [facility] PT/OT. Meaningful Use Info Meaningful Use Meaningful Use Diagnoses (Choose all that apply): None applicable Ischemic Stroke Statin Dosing Therapy Reference: STATIN DOSE THERAPY REFERENCE: * Patients > 75 years receive moderate or high dose statin therapy. * Patients 75 years or YOUNGER should receive HIGH intensity statin dose unless contraindicated. You will be required to document reason for non-treatment if statin daily dose does not meet guidelines. HIGH DOSE STATIN THERAPY DAILY Atorvastatin > than or = to 40 mg Rosuvastatin > than or = to 20 mg Amlodipine + Atorvastatin > than or = to 2.5/40 mg Ezetimibe + Simvastatin 10/80 mg Simvastatin 80mg Discharge Plan Admission Admit Date/Time: 01/24/24 16:53 Primary Reason for Your Visit: Debility. Attending Provider: Wong Estevez Chi Primary Care Provider: Kate Feldman Instructions Additional Instructions / Restrictions: Discharge home alone 02/10/2024, [facility] PT/OT. Discharge Orders/Prescriptions Prescriptions: New baclofen 10 mg Tablet 5 mg PO QHS 30 Days Qty: 15 0RF insulin lispro [Humalog KwikPen Insulin] 100 unit/mL Insulin Pen 7 unit subcut TIDAC Qty: 0 0RF Continued biotin 10,000 mcg capsule 10,000 mcg PO DAILY pravastatin 20 MG tablet 20 mg PO QHS omega-3 fatty acids-fish oil 1 EACH capsule 1 ea PO BID multivitamin with folic acid 1 TABLET tablet 1 tab PO DAILY pioglitazone 15 mg tablet 15 mg PO DAILY levothyroxine 88 mcg tablet 88 mcg PO DAILY metformin 500 mg tablet,ER manjula.retention 24 hr 1,000 mg PO BID Januvia 50 mg tablet 50 mg PO DAILY Referrals / Follow Up: Kate Feldman MD [Primary Care Provider] - Disposition Disposition (needs filled in before D/C Order can be placed): Home Health Service
[2024-02-07] MEDS: Pravastatin 20 MG Tablet PO (20:22)
[2024-02-07] MEDS: Baclofen 10 MG Tablet 5 MG PO (20:22)
[2024-02-07 22:00] LABS: Bedside Glucose 111 mg/dL (74-106)
[2024-02-08] MEDS: Levothyroxine 88 MCG Tablet PO (05:05)
[2024-02-08] MEDS: Enoxaparin 40 MG/0.4 ML Syringe SC (05:05)
[2024-02-08] MEDS: Glucerna Shake 120 ML LIQUID PO (05:05)
[2024-02-08 05:11] VITALS: RESP 16
[2024-02-08 05:50] LABS: Absolute Lymphocyte Count 1.07 X10^3/uL (0.83-4.51); Absolute Neutrophil Count 4.4 X10^3/uL (2.0-7.7); Basophil# 0.03 X10^3/uL; Basophil% 0.5 % (0-1); Eosinophil# 0.11 X10^3/uL; Eosinophils% 1.8 % (0-5); Hematocrit 36.3 % (37-47); Hemoglobin 11.9 g/dL (12.0-15.0); Lymphocyte # 1.07 X10^3/ul (0.83-4.51); Lymphocyte % 17.2 % (19-41); Mean Corp Hgb Conc 32.8 g/dL (32-36); Mean Corpuscular Hgb 31.4 pg (27.0-32.0); Mean Corpuscular Volume 95.8 fL (81-99); Mean Platelet Vol. 8.3 fl (6.2-12.0); Monocyte# 0.56 X10^3/uL; NRBC Flagged by Analyzer 0 % (0-5); Neutrophil # 4.39 X10^3/uL (2.7-7.7); Neutrophil % 70.4 % (47-70); Platelet Count 530 K/mm3 (150-450); RBC Distribution Width CV 12.4 % (11.6-14.6); Red Blood Count 3.79 M/mm3 (4.2-5.4); White Blood Count 6.2 K/mm3 (4.4-11.0)
[2024-02-08 06:10] LABS: Bedside Glucose 264 mg/dL (74-106)
[2024-02-08 06:28] LABS: Anion Gap 3 (5-15); BUN 17 mg/dL (7-18); BUN/Creat Ratio 28.1 RATIO (10-20); Calcium,Total 9.1 mg/dL (8.5-10.1); Chloride 100 mmol/L (98-107); EST Glomerular Filtration Rate 100 mL/min (>60); Est Glom Filt Rate - Afr Amer 120 mL/min (>60); Estimated Creatinine Clearance 37.07 ml/min; Glucose 269 mg/dL (74-106); Potassium 4.3 mmol/L (3.5-5.1); Sodium Level 135 mmol/L (136-145)
[2024-02-08 08:20] VITALS: BP 127/69; PULSE 89; RESP 16; TEMP 36.6; O2SAT 95
[2024-02-08] MEDS: Omega-3 Acid Ethyl Esters 1 GM Capsule PO ×2 (08:22→20:51)
[2024-02-08] MEDS: Pioglitazone Hydrochloride 15 MG Tablet PO (08:22)
[2024-02-08] MEDS: LINAGLIPTIN 5 MG TABLET PO (08:22)
[2024-02-08] MEDS: Multivitamins,Therapeutic Tablet 1 TABLET PO (08:23)
[2024-02-08] MEDS: Insulin Lispro 100 UNIT/ML INSULN.PEN 7 UNIT SC ×3 (08:23→18:23)
[2024-02-08] MEDS: metFORMIN (XR) 500 MG Tablet 1000 MG PO ×2 (08:23→18:25)
--- NOTE | 2024-02-08 10:51 | CASEMGMT ---
Social Work SW met with patient yesterday and discussed DC plans. Pt states she is ready to go home and picked Monday, 02/09 as DC date. Pt stated she would like HHC through [facility]. SW made referral to [facility] for PT/OT and they are able to accept with start of care on Monday02/13/24. Pt is going to have her son pick her up for DC. Anna PARK
[2024-02-08] MEDS: Menthol/Lanolin/Calamine/Znox 113 GM Tube 1 APPLIC TOPICAL ×2 (11:57→20:51)
[2024-02-08 13:51] LABS: Bedside Glucose 165 mg/dL (74-106)
[2024-02-08 17:07] LABS: Bedside Glucose 159 mg/dL (74-106)
[2024-02-08] MEDS: Baclofen 10 MG Tablet 5 MG PO (20:51)
[2024-02-08] MEDS: Pravastatin 20 MG Tablet PO (20:51)
[2024-02-08] MEDS: MELATONIN 10 MG TABLET PO (20:57)
[2024-02-08 22:26] LABS: Bedside Glucose 124 mg/dL (74-106)
[2024-02-09] MEDS: Enoxaparin 40 MG/0.4 ML Syringe SC (05:18)
[2024-02-09] MEDS: Levothyroxine 88 MCG Tablet PO (05:19)
[2024-02-09] MEDS: Glucerna Shake 120 ML LIQUID PO (05:19)
[2024-02-09 06:12] LABS: Bedside Glucose 287 mg/dL (74-106)
[2024-02-09 07:55] VITALS: BP 142/87; PULSE 87; RESP 16; TEMP 36.6; O2SAT 94
[2024-02-09] MEDS: LINAGLIPTIN 5 MG TABLET PO (07:56)
[2024-02-09] MEDS: metFORMIN (XR) 500 MG Tablet 1000 MG PO ×2 (07:56→18:09)
[2024-02-09] MEDS: Pioglitazone Hydrochloride 15 MG Tablet PO (07:56)
[2024-02-09] MEDS: Multivitamins,Therapeutic Tablet 1 TABLET PO (07:56)
[2024-02-09] MEDS: Insulin Lispro 100 UNIT/ML INSULN.PEN 7 UNIT SC ×2 (07:57→12:04)
[2024-02-09] MEDS: Omega-3 Acid Ethyl Esters 1 GM Capsule PO ×2 (07:57→22:54)
[2024-02-09] MEDS: Menthol/Lanolin/Calamine/Znox 113 GM Tube 1 APPLIC TOPICAL (07:58)
--- NOTE | 2024-02-09 10:10 | MDS.RN ---
MDS pain interview complete.
[2024-02-09 11:18] LABS: Bedside Glucose 108 mg/dL (74-106)
--- NOTE | 2024-02-09 12:17 | CASEMGMT ---
Social Work SW met with pt and completed MDS interviews. BIMS PHQ2 0/1 Pt is looking forward to returning home. Anna GAOW
[2024-02-09 17:30] LABS: Bedside Glucose 98 mg/dL (74-106)
--- NOTE | 2024-02-09 17:59 | NURSING ---
pt blood sugar 98 dr covington udpated, new order to hold humalog dose tonight
[2024-02-09 21:42] LABS: Bedside Glucose 215 mg/dL (74-106)
[2024-02-09] MEDS: Pravastatin 20 MG Tablet PO (22:54)
[2024-02-10] MEDS: Glucerna Shake 120 ML LIQUID PO (06:31)
[2024-02-10] MEDS: Levothyroxine 88 MCG Tablet PO (06:32)
[2024-02-10 06:50] LABS: Bedside Glucose 261 mg/dL (74-106)
[2024-02-10] MEDS: Insulin Lispro 100 UNIT/ML INSULN.PEN 7 UNIT SC (07:56)
[2024-02-10] MEDS: metFORMIN (XR) 500 MG Tablet 1000 MG PO (07:57)
[2024-02-10] MEDS: LINAGLIPTIN 5 MG TABLET PO (07:57)
[2024-02-10] MEDS: Omega-3 Acid Ethyl Esters 1 GM Capsule PO (07:57)
[2024-02-10] MEDS: Pioglitazone Hydrochloride 15 MG Tablet PO (07:57)
[2024-02-10] MEDS: Multivitamins,Therapeutic Tablet 1 TABLET PO (07:57)
[2024-02-10] MEDS: Menthol/Lanolin/Calamine/Znox 113 GM Tube 1 APPLIC TOPICAL (07:58)
[2024-02-10 10:54] VITALS: BP 116/67; PULSE 92; RESP 18; TEMP 36.6; O2SAT 95
== END 2024-02-10 11:20 | disposition home health service (06) | DRG 950 ==
PROVIDERS: Admitting Provider Family Medicine Geriatric Medicine; PCP Internal Medicine; Referring Provider Family Medicine Geriatric Medicine; Visit Provider Family Medicine Geriatric Medicine
DX: S70.02XD Contusion of left hip, subsequent encounter (principal); E03.9 Hypothyroidism, unspecified; E11.9 Type 2 diabetes mellitus without complications; E78.5 Hyperlipidemia, unspecified; W19.XXXD Unspecified fall, subsequent encounter; M19.90 Unspecified osteoarthritis, unspecified site; M21.40 Flat foot [pes planus] (acquired), unspecified foot; R53.81 Other malaise; Z79.84 Long term (current) use of oral hypoglycemic drugs; Z79.899 Other long term (current) drug therapy; Z79.890 Hormone replacement therapy; G47.00 Insomnia, unspecified
CPT/HCPCS: 36415; 80048; 80061; 82962; 85025; 92507; 92523; 97110; 97116; 97162; 97166; 97530; 97535; 97802

== ENCOUNTER 2024-06-18 14:01 | Inpatient (IN) | payer MEDICARE, SELFPAY ==
[2024-06-18] VITALS (11 sets, daily range): BP systolic 97–178; BP diastolic 55–130; PULSE 91–121; RESP 12–22; TEMP 36.1–38.3; O2SAT 88–100; BMI 18.8; BMI 19.2
--- NOTE | 2024-06-18 14:39 | EDS_ITS ---
HPI History of Present Illness Chief Complaint: Weakness Informant: patient and family ([id number]) Onset/Context/Timing Onset: Days (2) Context: Sudden Onset Timing: Continuous Quality: Fatigue, weakness, confusion Location: Generalized Worsened by: Nothing Relieved by: Increasing her Lantus Narrative Narrative: Patient presents with generalized weakness that has been getting worse over the last 2 days. The patient states he had difficulty getting out of bed 2 days ago. Patient states she feels weak all over. [id number]-uyt states that she thinks she has been confused over the last couple days as well. Patient saw her primary care physician yesterday who increased her Lantus. Patient states that this did help with some of her symptoms. Patient states that her blood sugars have been up into the 300s and 400s. Patient states she has some increased thirst and urinary frequency. Patient states she has had a 20 pound weight loss since January. Hvaymtrn-[id number] also states that her speech appears to be slightly slurred. [facility] Medical History Sialosis Hypothyroidism Diabetes Osteoarthritis (arthritis due to wear and tear of joints) Former smoker Right knee pain Pes planus Type 2 diabetes mellitus Hyperlipemia History of breast cancer Home Medications ?Medication ?Instructions ?Recorded ?Last Taken ?Type multivitamin with folic acid 400 1 tab PO DAILY Supplement 02/27/17 Unknown History mcg tablet omega-3 fatty acids-fish oil 340 1 ea PO BID Supplement 02/27/17 Unknown History mg-1,000 mg capsule pravastatin 20 mg tablet 20 mg PO QHS Cholesterol 02/27/17 Unknown History biotin 10,000 mcg capsule 10,000 mcg PO DAILY Supplement 01/11/18 Unknown History levothyroxine 88 mcg tablet 88 mcg PO DAILY disorder of 01/22/24 Unknown History thyroid gland pioglitazone 15 mg tablet 15 mg PO DAILY Diabetes 01/22/24 Unknown History sitagliptin phosphate 50 mg tablet 50 mg PO DAILY Diabetes 01/22/24 Unknown History (Januvia) baclofen 10 mg tablet 5 mg (1/2 x 10 mg) PO QHS 30 days 02/07/24 Unknown Rx #15 tabs insulin lispro 100 unit/mL 7 unit (0.07 mL) subcut TIDAC #0 mL 02/07/24 Unknown Rx subcutaneous pen (Humalog KwikPen (U-100) Insulin) insulin glargine 100 unit/mL (3 6 unit subcut QHS 06/18/24 Unknown History mL) subcutaneous pen (Lantus Solostar U-100 Insulin) Allergy/AdvReac Type Severity Reaction Status Date / Time No Known Allergies Allergy Verified 06/18/24 14:02 Family History Mother Colon cancer Father Heart disease Brother Parkinson disease Surgical 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, 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 Colonoscopy planned History of mastectomy History of breast biopsy Social History household members: none Smoking Status: Never smoker alcohol intake: current alcohol intake frequency: 0-2 drinks per day Alcohol type: hard liquor what type of physical activity do you participate in: walking frequency: 3-4 times per week ROS ROS ED Constitutional Constitutional ED: Reports chills; Denies fever(s) Eyes Eyes: Denies blurry vision or change in vision ENT ENT ED: Denies rhinorrhea or sore throat Cardiovascular Cardiovascular: Denies chest pain or palpitations Respiratory/Chest Respiratory/Chest: Denies cough or dyspnea Gastrointestinal Gastrointestinal: Reports nausea; Denies abdominal pain or vomiting Genitourinary Genitourinary ED: Reports urinary frequency; Denies dysuria or hematuria Musculoskeletal Musculoskeletal: Reports back pain and neck pain Integumentary Denies abscess or rash Neurologic Neurologic: Reports weakness; Denies headache(s) Endocrine Endocrinology: Reports polydipsia and polyuria Allergic/Immunologic Allergic/Immunologic ED: Denies mouth swelling or urticaria EXAM Physical Exam Const Vital Signs: 06/18/24 14:02 06/18/24 14:11 06/18/24 16:22 Temperature 96.9 F L Temperature Source Temporal Pulse Rate 97 110 H Respiratory Rate 18 22 H Respiratory Effort Normal Non-Labored Respiratory Pattern Normal Blood Pressure 126/73 H 178/120 H Blood Pressure Mean 90 139 Pulse Ox 99 93 Oxygen Delivery Method Room Air Room Air Positive well nourished and well developed General Appearance ED: well developed and NAD HEENT Reports moist mucous membranes Neck supple and no JVD Resp normal respiratory effort and clear to auscultation bilaterally Cardio regular rate and regular rhythm GI non-tender and non-distended Neuro oriented x3, CN's II-XII intact bilaterally and no sensory deficits noted Motor Exam: strength 5/5 throughout Psych mental status grossly normal MDM MDM MDM Narrative Medical decision making narrative: Differential diagnosis includes diabetic ketoacidosis, hyperosmolar hyperglycemic nonketotic state, dehydration, electrolyte abnormality, viral illness, pneumonia, cardiac dysrhythmia, and cardiac ischemia. EKG will be obtained to assess for cardiac dysrhythmia and cardiac ischemia. Chest x-ray will be obtained to assess for pneumonia and bronchitis. CBC will be obtained to assess for leukocytosis or anemia. Basic metabolic profile will be obtained to assess for electrolyte abnormality and renal function. Urinalysis will be obtained to assess for urinary tract infection and hematuria. Serum acetone will be obtained to assess for ketoacidosis. Lab Data Attestation: I reviewed the patient's lab results. Lab results narrative: CBC was reviewed. There is a leukocytosis of 20.0. The remainder is within normal limits. Basic metabolic profile was reviewed. Glucose was 359. Sodium was low at 130 and chloride was low at 94. Potassium was normal. Anion gap was normal. BUN was slightly elevated at 33 and creatinine was slightly elevated at 1.18. High-sensitivity troponin was reviewed and was normal at 19. Serum acetone level was reviewed and was small. Urinalysis was reviewed. Leukocyte esterase was 100 with 10-25 white blood cells and 4+ bacteria. Labs: Laboratory Results - last 24 hr 06/18/24 06/18/24 15:30 15:43 WBC 20.0 H RBC 4.69 Hgb 14.0 Hct 42.3 MCV 90.2 MCH 29.9 MCHC 33.1 RDW Std Deviation 42.9 RDW Coeff of Milly 13.0 Plt Count 324 MPV 9.4 Immature Gran % (Auto) 0.800 Neut % (Auto) 92.4 H Lymph % (Auto) 3.6 L [place] % (Auto) 2.9 Eos % (Auto) 0.0 Baso % (Auto) 0.3 Absolute Neuts (auto) 18.5 H Absolute Lymphs (auto) 0.72 L Nucleated RBC % 0 Sodium 130 L Potassium 4.6 Chloride 94 L Carbon Dioxide 27.0 Anion Gap 9 BUN 33 H Creatinine 1.18 H Estim Creat Clear Calc 23.91 Est GFR (MDRD) Af Amer 56 L Est GFR (MDRD) Non-Af 46 L BUN/Creatinine Ratio 28.0 H Glucose 359 H Calcium 10.2 H Troponin I High Sens 19 Urine Color Yellow Urine Clarity Sl. Cloudy Urine pH 6.0 Ur Specific [place] 1.020 Urine Protein 100 H Urine Glucose (UA) 1000 H Urine Ketones 50 H Urine Occult Blood 250 H Urine Nitrite Negative Urine Bilirubin Negative Urine Urobilinogen Normal Ur Leukocyte Esterase 100 H Urine RBC 0-5 SEEN Urine WBC 10-25 SEEN Ur Squamous Epith Cells 0 SEEN Urine Bacteria 4+ Urine Mucus 0 SEEN Acetone Level SMALL H ABG Data ABG results: ABG 06/18/24 16:34 Specimen Type NUBIA Sample Site Not entered VBG pH 7.41 VBG pO2 20 L VBG HCO3 24 VBG Total CO2 26 VBG O2 Sat (Calc) 31 L VBG Base Excess 0 POC Mix VBG pCO2 Pt Tmp 38.7 L O2 Delivery Device Room Air Crit Call To/Read Back Yes Radiography Diagnostic Testing: Clinical Impression(s) from Imaging Studies Chest X-Ray 06/18/24 15:41 IMPRESSION: Basilar atelectasis. Electronically Signed: Ian Woo DO at 16:51 EDT Reading Location ID and State: [facility] / [place] Tel [phone], Service support , PA and lateral chest x-ray was obtained. There are 2 views. On my independent interpretation, lung rojas are clear. There is normal cardiac silhouette. Bony thorax is normal. There is no acute process noted. Radiologist also interpreted the x-ray and agrees. EKG Initial EKG: Attestation: I personally reviewed and interpreted this EKG as follows: Interpretation: Sinus Rhythm (88) and Non-Specific ST Changes Comments: EKG was obtained. On my independent interpretation, it showed a normal sinus rhythm with a rate of 88. FL interval, QRS interval, and QTc intervals were all normal. [place] was normal. There are nonspecific ST-T wave changes. Prior EKG tracings: available for review Prior: Unchanged (02/28/2017) Management Discussion w/another healthcare provider: Hospitalist Treatment and Re-Evaluation :: Patient was given IV fluids. Patient was given a dose of subcutaneous insulin. Since the patient has normal anion gap and normal venous pH, I do not feel the patient is in diabetic ketoacidosis. Her serum osmolality was calculated at 292 which is normal. Urine culture was ordered. Patient was started on Rocephin. Case was discussed with the hospitalist for admission for urinary tract infection, generalized weakness, and dehydration. Hospitalist will admit the patient to her service. Patient and family understand and are agreeable with the plan. All questions were answered. Discharge Plan Triage Chief Complaint: Weakness ED Provider: Prasad Galeas Dx/Rx/DC Orders Clinical Impression: Dehydration, Hyperglycemia, Urinary tract infection Prescriptions: No Action biotin 10,000 mcg capsule 10,000 mcg PO DAILY pravastatin 20 MG tablet 20 mg PO QHS omega-3 fatty acids-fish oil 1 EACH capsule 1 ea PO BID multivitamin with folic acid 1 TABLET tablet 1 tab PO DAILY baclofen 10 mg Tablet 5 mg PO QHS 30 Days Qty: 15 0RF insulin lispro [Humalog KwikPen Insulin] 100 unit/mL Insulin Pen 7 unit subcut TIDAC Qty: 0 0RF pioglitazone 15 mg tablet 15 mg PO DAILY levothyroxine 88 mcg tablet 88 mcg PO DAILY metformin 500 mg tablet,ER manjula.retention 24 hr 1,000 mg PO BID Januvia 50 mg tablet 50 mg PO DAILY Primary Care Provider: Kate Feldman Referrals: Kate Feldman MD [Primary Care Provider] - Print Language: Pashto Disposition Disposition: Acute Care Hospital [facility]
--- NOTE | 2024-06-18 15:10 | EKG12_ITS ---
Test Reason : Blood Pressure : / mmHG Vent. Rate : 088 BPM Atrial Rate : 088 BPM P-R Int : 152 ms QRS Dur : 088 ms QT Int : 380 ms P-R-T Axes : 069 035 055 degrees QTc Int : 459 ms Normal sinus rhythm Low voltage QRS Possible ND depression inferior leads Cannot rule out Anterior infarct , age undetermined Abnormal ECG Confirmed by Merritt Bui ([id number]), video effects editor ROBERTO HATHAWAY ([id number]) on 06/19/2024 10:15:07 AM Referred By: Confirmed By:Merritt Bui
[2024-06-18] MEDS: 0.9% Normal Saline (1000mL) 1,000 ML 1000 ML IV ×2 (15:39→17:05)
--- NOTE | 2024-06-18 15:41 | RAD_ITS ---
INDICATION: Weakness EXAMINATION/TECHNIQUE: X-RAY - XR Chest 2 Views COMPARISON: FINDINGS: LINES/DEVICES: None. LUNGS: No consolidation, edema or effusion. Bilateral basilar atelectasis. No pneumothorax. MEDIASTINUM AND CARDIOVASCULAR STRUCTURES: Cardiac silhouette not enlarged. Central airways and mediastinal contour are unremarkable. BONES AND SOFT TISSUES: Degenerative vertebral changes and mild scoliosis. RAD/Chest PA and Lateral IMPRESSION: Basilar atelectasis. Electronically Signed: Ian Woo DO at 16:51 EDT ,
[2024-06-18 15:49] LABS: Mucous, Urine 0 SEEN /hpf (<or=2+); Squamous Epithelial Cells - UA 0 SEEN /hpf (5-10)
[2024-06-18 15:54] LABS: Absolute Lymphocyte Count 0.72 X10^3/uL (0.83-4.51); Absolute Neutrophil Count 18.5 X10^3/uL (2.0-7.7); Basophil# 0.06 X10^3/uL; Basophil% 0.3 % (0-1); Eosinophil# 0.01 X10^3/uL; Hematocrit 42.3 % (37-47); Lymphocyte # 0.72 X10^3/ul (0.83-4.51); Lymphocyte % 3.6 % (19-41); Mean Corp Hgb Conc 33.1 g/dL (32-36); Mean Corpuscular Hgb 29.9 pg (27.0-32.0); Mean Corpuscular Volume 90.2 fL (81-99); Mean Platelet Vol. 9.4 fl (6.2-12.0); Monocyte# 0.58 X10^3/uL; Monocyte% 2.9 % (0-10); NRBC Flagged by Analyzer 0 % (0-5); Neutrophil # 18.51 X10^3/uL (2.7-7.7); Neutrophil % 92.4 % (47-70); Platelet Count 324 K/mm3 (150-450); RBC Distribution Width SD 42.9 fl (35.1-43.9); Red Blood Count 4.69 M/mm3 (4.2-5.4)
[2024-06-18 16:10] LABS: Anion Gap 9 (5-15); BUN 33 mg/dL (7-18); Calcium,Total 10.2 mg/dL (8.5-10.1); Chloride 94 mmol/L (98-107); Creatinine, Serum 1.18 mg/dL (0.55-1.02); EST Glomerular Filtration Rate 46 mL/min (>60); Est Glom Filt Rate - Afr Amer 56 mL/min (>60); Estimated Creatinine Clearance 23.91 ml/min; Glucose 359 mg/dL (74-106); Potassium 4.6 mmol/L (3.5-5.1); Sodium Level 130 mmol/L (136-145); Troponin-I HS 19 pg/mL (3.0-54.0)
--- NOTE | 2024-06-18 16:30 | ED.RN ---
provider aware of pts concerns of nothing to eat since this morning which is when she last had her insulin. no new orders given. pt continues to c/o abd pain while requesting something to drink and eat.
[2024-06-18 16:37] LABS: Color, Urine Yellow (Yellow); Glucose, Dipstick 1000 mg/dl (Normal); Ketone-Dipstick 50 mg/dl (Negative); Leukocyte Esterase-Dipstick 100 /ul (Negative); Nitrite-Dipstick Negative (Negative); Occult Blood-Urine 250 /ul (Negative); Protein-Dipstick 100 mg/dl (Negative); Urine Bilirubin Dipstick Negative (Negative); Urine Clarity Sl. Cloudy (Clear); Urine Urobilinogen Normal (Normal)
[2024-06-18 16:38] LABS: Blood Gas Specimen Type VEN; O2 Delivery Device Room Air; SITE Not entered; VBG BASE EXCESS 0 mmol/L (-1.0-3.5); VBG Bicarbonate 24 mmol/L (22-26); VBG PO2 20 mmHg (25-40); VBG SO2 31 % (50-70); VBG TCO2 26 mmol/L (23-33); VBG pCO2 38.7 mmHg (41-51); VBG pH 7.41 (7.32-7.42)
[2024-06-18] MEDS: Insulin Lispro 100 UNIT/ML INSULN.PEN 10 UNIT SC (17:06)
[2024-06-18 17:14] LABS: Bacteria 4+ /hpf (None Seen); Red Blood Cells-Urine 0-5 SEEN /hpf (0-5); White Blood Cells 10-25 SEEN /hpf (0-5)
[2024-06-18] MEDS: Ceftriaxone 1 GM/50 ML BAG IV (17:34)
--- NOTE | 2024-06-18 17:59 | HP.PCM.HOS_ITS ---
HPI - General General Date of Service: 06/18/24 Chief Complaint: AMS, weakness HPI Narrative SHAWN JACKSON, is a 89-year-old female history of diabetes and hypothyroidism presented to [facility] ED 06/18/2024 with generalized weakness worse over the past 2 days to the point where she is having difficulty getting out of bed. [id number] also feels she has been confused over the last couple of days. Saw her primary care physician yesterday and her Lantus was increased as blood sugars have been 300s to 400s and she has had increased thirst and urinary frequency with 20 pound weight loss since January. In the ED patient with white blood cell count of 20, creatinine 1.18 up from 0.60 several months ago and sodium of 130 and UA suggestive of UTI. Hospitalist contacted for admission due to generalized weakness and encephalopathy with suspected UTI and KATHRYN. Patient evaluated at bedside. Patient confused and not able to answer orientation questions and frequently forgets what she is talking on the middle of her sentence and switches topic. Unable to even get ROS from patient as she is awake and alert but not making sense. No family at bedside at my evaluation [facility] Medical History Sialosis Hypothyroidism Diabetes Osteoarthritis (arthritis due to wear and tear of joints) Former smoker Right knee pain Pes planus Type 2 diabetes mellitus Hyperlipemia History of breast cancer Home Medications ?Medication ?Instructions ?Recorded ?Last Taken ?Type multivitamin with folic acid 400 1 tab PO DAILY Supplement 02/27/17 Unknown History mcg tablet omega-3 fatty acids-fish oil 340 1 ea PO BID Supplement 02/27/17 Unknown History mg-1,000 mg capsule pravastatin 20 mg tablet 20 mg PO QHS Cholesterol 02/27/17 Unknown History biotin 10,000 mcg capsule 10,000 mcg PO DAILY Supplement 01/11/18 Unknown History levothyroxine 88 mcg tablet 88 mcg PO DAILY disorder of 01/22/24 Unknown History thyroid gland pioglitazone 15 mg tablet 15 mg PO DAILY Diabetes 01/22/24 Unknown History sitagliptin phosphate 50 mg tablet 50 mg PO DAILY Diabetes 01/22/24 Unknown History (Octmakayla) baclofen 10 mg tablet 5 mg (1/2 x 10 mg) PO QHS 30 days 02/07/24 Unknown Rx #15 tabs insulin lispro 100 unit/mL 7 unit (0.07 mL) subcut TIDAC #0 mL 02/07/24 Unknown Rx subcutaneous pen (Humalog KwikPen (U-100) Insulin) insulin glargine 100 unit/mL (3 6 unit subcut QHS 06/18/24 Unknown History mL) subcutaneous pen (Lantus Solostar U-100 Insulin) Allergy/AdvReac Type Severity Reaction Status Date / Time No Known Allergies Allergy Verified 06/18/24 14:02 Family History Mother Colon cancer Father Heart disease Brother Parkinson disease Surgical 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, 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 Colonoscopy planned History of mastectomy History of breast biopsy Social History household members: none Smoking Status: Never smoker alcohol intake: current alcohol intake frequency: 0-2 drinks per day Alcohol type: hard liquor what type of physical activity do you participate in: walking frequency: 3-4 times per week ROS ROS Narrative Unable to obtain ROS secondary to mental status Vital Signs Vital Signs Vital Signs: 06/18/24 14:02 06/18/24 14:11 06/18/24 16:22 Temperature 96.9 F L Temperature Source Temporal Pulse Rate 97 110 H Respiratory Rate 18 22 H Respiratory Effort Normal Non-Labored Respiratory Pattern Normal Blood Pressure 126/73 H 178/120 H Blood Pressure Mean 90 139 Pulse Ox 99 93 Oxygen Delivery Method Room Air Room Air Oxygen Flow Rate (L/min) 06/18/24 17:30 06/18/24 17:35 06/18/24 17:45 Temperature 98 F 99.9 F H Temperature Source Oral Pulse Rate 107 H 121 H Respiratory Rate 14 18 Respiratory Effort Respiratory Pattern Blood Pressure 173/130 H 162/94 H Blood Pressure Mean 144 116 Pulse Ox 100 92 88 Oxygen Delivery Method Room Air Room Air Oxygen Flow Rate (L/min) 06/18/24 17:52 Temperature Temperature Source Pulse Rate Respiratory Rate Respiratory Effort Respiratory Pattern Blood Pressure Blood Pressure Mean Pulse Ox 96 Oxygen Delivery Method Nasal Cannula Oxygen Flow Rate (L/min) 2 Weight Weight: 45.1 kg Body Mass Index (BMI) 18.8 Physical Exam Narrative General: Alert, confused and unable to reliably answer questions HEENT: Atraumatic, normocephalic Eyes: Anicteric, normal conjunctiva, extraocular movements grossly intact Neck: Supple Respiratory: Clear to auscultation bilaterally, normal respiratory effort Cardiovascular: Mildly tachycardic GI: Soft, nontender, nondistended Extremities: No edema Musculoskeletal: Moving all extremities Neuro: No overt focal neurological deficits Skin: No rashes appreciated Psych: Attempts to be cooperative however unable to do so given mental status Results Lab / Micro Data 06/18/24 15:30 06/18/24 15:30 Labs: Laboratory Results - last 24 hr 06/18/24 15:30: WBC 20.0 H, RBC 4.69, Hgb 14.0, Hct 42.3, MCV 90.2, MCH 29.9, MCHC 33.1, RDW Std Deviation 42.9, RDW Coeff of Milly 13.0, Plt Count 324, MPV 9.4, Immature Gran % (Auto) 0.800, Neut % (Auto) 92.4 H, Lymph % (Auto) 3.6 L, [place] % (Auto) 2.9, Eos % (Auto) 0.0, Baso % (Auto) 0.3, Absolute Neuts (auto) 18.5 H, Absolute Lymphs (auto) 0.72 L, Nucleated RBC % 0, Sodium 130 L, Potassium 4.6, Chloride 94 L, Carbon Dioxide 27.0, Anion Gap 9, BUN 33 H, C reatinine 1.18 H, Estim Creat Clear Calc 23.91, Est GFR (MDRD) Af Amer 56 L, Est GFR (MDRD) Non-Af 46 L, BUN/Creatinine Ratio 28.0 H, Glucose 359 H, Calcium 10.2 H, Troponin I High Sens 19, Acetone Level SMALL H 06/18/24 15:43: Urine Color Yellow, Urine Clarity Sl. Cloudy, Urine pH 6.0, Ur Specific [place] 1.020, Urine Protein 100 H, Urine Glucose (UA) 1000 H, Urine Ketones 50 H, Urine Occult Blood 250 H, Urine Nitrite Negative, Urine Bilirubin Negative, Urine Urobilinogen Normal, Ur Leukocyte Esterase 100 H, Urine RBC 0-5 SEEN, Urine WBC 10-25 SEEN, Ur Squamous Epith Cells 0 SEEN, Urine Bacteria 4+, Urine Mucus 0 SEEN Micro: Microbiology 06/18/24 15:53 Mucosa - Nose SARS-CoV-2, Influenza & RSV (PCR) - Final ABG Data ABG results: ABG 06/18/24 16:34 Specimen Type NUBIA Sample Site Not entered VBG pH 7.41 VBG pO2 20 L VBG HCO3 24 VBG Total CO2 26 VBG O2 Sat (Calc) 31 L VBG Base Excess 0 POC Mix VBG pCO2 Pt Tmp 38.7 L O2 Delivery Device Room Air Crit Call To/Read Back Yes Imaging Radiology Impression Chest X-Ray 06/18/24 15:41 IMPRESSION: Basilar atelectasis. Electronically Signed: Ian Woo DO at 16:51 EDT Reading Location ID and State: [facility] / [place] Tel [phone], Service support , Assessment & Plan Assessment/Plan (1) Urinary tract infection: PLAN: Plan # Suspect UTI -UA suggestive of UTI -WBC 20 with left shift, is presently tachycardic and confused -Urine culture ordered, will also order blood culture -Continue IV antibiotics -IV fluids #Low O2 -Patient dropped to 88% on room air, COVID-negative -Will check respiratory panel -Not having any present respiratory complaints and improved to 94% on 2 L -Chest x-ray no acute process but showed bibasilar atelectasis so suspect this is associated with atelectasis -I/S -No wheezing or rhonchi, no known history of COPD or other underlying respiratory problems -Albuterol as needed # Metabolic encephalopathy -Suspected secondary to UTI as UA suggestive of UTI -Does have slightly low sodium but also elevated creatinine suspect patient volume depleted -IV antibiotics -IV fluids -Calcium is slightly elevated but again suspect patient is dehydrated and that this is not the primary etiology # KATHRYN -Creatinine 1.18 with baseline 0.6?0.7 -IV fluids -Recheck in the a.m. -Avoid nephrotoxic agents # Generalized weakness -Suspect due to above -PT/OT -May need placement if does not resolve/improve with treatment of underlying conditions # Hyponatremia -Sodium 130, previously 135 but presently corrected sodium is 134 given elevated glucose -Repeat in the a.m., suspect the mild degree of lowering may be due to dehydration #Type 2 diabetes mellitus with hyperglycemia -Glucose checks and sliding scale insulin -Schedule long-acting insulin -A1c in the a.m. -Suspect this is elevated above baseline in part due to UTI/infection #Hypothyroidism -Continue Synthroid -TSH in AM # History of chronic stage I diastolic dysfunction -Seen on echocardiogram 01/24/2024 -Daily weights, I's and O's -Does not appear to be fluid overloaded, will hydrate judiciously #Hx breast cancer -Status post previous mastectomy #DVT ppx: Heparin subcu Michelle Lisa MD *Patient was initially going to be admitted to [facility] for KATHRYN and UTI however patient with progressive metabolic encephalopathy, now requiring 2 L of O2, tachycardic. Will admit to PCU Charges/Coding Visit Charges Inpatient E&M: 11298 Init Hosp L2
[2024-06-18] MEDS: Acetaminophen 500 MG Tablet 1000 MG PO (18:06)
[2024-06-18] MEDS: Insulin Glargine-YFGN 100 UNIT/ML Pen 6 UNIT SC (20:41)
[2024-06-18] MEDS: Heparin Injection (Vial) 5,000 UNIT/ML VIAL 5000 UNIT SC (20:41)
[2024-06-18] MEDS: Pravastatin 20 MG Tablet PO (20:41)
[2024-06-18] MEDS: 0.9% Normal Saline (1000mL) 1,000 ML 75 ML IV (20:58)
[2024-06-18 21:02] LABS: Bedside Glucose 134 mg/dL (74-106)
--- NOTE | 2024-06-18 21:04 | NURSING ---
This RN charted admission questions under Coleen Ryan name. After scanning badge it did not switch to my log in.
[2024-06-19] VITALS (8 sets, daily range): BP systolic 111–147; BP diastolic 64–80; PULSE 75–99; RESP 16–18; TEMP 36.4–37.4; O2SAT 94–96; BMI 19.1
[2024-06-19] MEDS: Ibuprofen 200 MG Tablet PO ×2 (03:39→17:17)
[2024-06-19] MEDS: 0.9% Saline Lock 10 ML Syringe IV ×2 (03:40→11:27)
[2024-06-19] MEDS: Insulin Lispro 100 UNIT/ML INSULN.PEN SC ×4 (06:27→20:48)
[2024-06-19] MEDS: Levothyroxine 88 MCG Tablet PO (06:27)
[2024-06-19 06:42] LABS: Absolute Lymphocyte Count 0.96 X10^3/uL (0.83-4.51); Absolute Neutrophil Count 17.3 X10^3/uL (2.0-7.7); Basophil# 0.09 X10^3/uL; Basophil% 0.5 % (0-1); Eosinophil# 0.01 X10^3/uL; Eosinophils% 0.1 % (0-5); Hematocrit 35.3 % (37-47); Hemoglobin 11.7 g/dL (12.0-15.0); Lymphocyte # 0.96 X10^3/ul (0.83-4.51); Lymphocyte % 4.9 % (19-41); Mean Corp Hgb Conc 33.1 g/dL (32-36); Mean Corpuscular Hgb 30.2 pg (27.0-32.0); Mean Corpuscular Volume 91.2 fL (81-99); Mean Platelet Vol. 9.8 fl (6.2-12.0); Monocyte# 1.23 X10^3/uL; Monocyte% 6.2 % (0-10); NRBC Flagged by Analyzer 0 % (0-5); Neutrophil % 87.4 % (47-70); Platelet Count 277 K/mm3 (150-450); RBC Distribution Width CV 13.2 % (11.6-14.6); RBC Distribution Width SD 43.8 fl (35.1-43.9); Red Blood Count 3.87 M/mm3 (4.2-5.4); White Blood Count 19.8 K/mm3 (4.4-11.0)
[2024-06-19 06:51] LABS: Bedside Glucose 266 mg/dL (74-106)
[2024-06-19 07:26] LABS: ALB/GLOB Ratio 0.6 RATIO (0.9-2.4); AST(SGOT) 26 U/L (15-37); Alanine Aminotransfer ALT/SGPT 20 U/L (13-56); Alkaline Phosphatase 102 U/L (45-117); Anion Gap 7 (5-15); BUN 28 mg/dL (7-18); Calcium,Total 8.8 mg/dL (8.5-10.1); Chloride 106 mmol/L (98-107); EST Glomerular Filtration Rate 72 mL/min (>60); Est Glom Filt Rate - Afr Amer 87 mL/min (>60); Estimated Creatinine Clearance 35.98 ml/min; Globulin 3.5 g/dL (2.2-4.2); Glucose 282 mg/dL (74-106); Potassium 4.3 mmol/L (3.5-5.1); Protein, Total 5.5 g/dL (6.4-8.2); Sodium Level 135 mmol/L (136-145)
[2024-06-19 07:35] LABS: International Normalized Ratio 1.2; Prothrombin Time (Protime)PT. 15.6 SECONDS (11.7-14.9)
[2024-06-19 09:12] LABS: Hemoglobin A1c 13.8 % (3.8-5.6)
[2024-06-19] MEDS: 0.9% Normal Saline (1000mL) 1,000 ML 75 ML IV (11:24)
[2024-06-19] MEDS: Heparin Injection (Vial) 5,000 UNIT/ML VIAL 5000 UNIT SC ×2 (11:24→20:47)
[2024-06-19] MEDS: Ceftriaxone 1 GM/50 ML BAG IV (11:28)
--- NOTE | 2024-06-19 11:31 | PN.HOSP_ITS ---
Subjective Subjective Doing well, feels a bit better. Cultures are still pending Objective Data Objective Data Vital Signs: Vital Signs Temp Pulse Resp BP Pulse Ox O2 Del Method O2 Flow Rate 98.2 F 89 16 112/69 96 Room Air 2 06/19/24 11:14 06/19/24 11:14 06/19/24 11:14 06/19/24 11:14 06/19/24 11:14 06/19/24 11:14 06/19/24 08:14 Oxygen Flow Rate (L/min) 2 Oxygen Delivery Method Room Air Weight: 101 lb 6.602 oz Body Mass Index (BMI) 19.1 Intake & Output: Intake and Output for Last 24 Hours 06/18/24 06/19/24 06/20/24 03:59 03:59 03:59 Intake Total 2049 50 / 50 Balance 2049 50 / 50 Lab / Micro Data 06/19/24 06:25 06/19/24 06:25 Labs: Laboratory Results - last 24 hr 06/18/24 15:30: WBC 20.0 H, RBC 4.69, Hgb 14.0, Hct 42.3, MCV 90.2, MCH 29.9, MCHC 33.1, RDW Std Deviation 42.9, RDW Coeff of Milly 13.0, Plt Count 324, MPV 9.4, Immature Gran % (Auto) 0.800, Neut % (Auto) 92.4 H, Lymph % (Auto) 3.6 L, [place] % (Auto) 2.9, Eos % (Auto) 0.0, Baso % (Auto) 0.3, Absolute Neuts (auto) 18.5 H, Absolute Lymphs (auto) 0.72 L, Nucleated RBC % 0, Sodium 130 L, Potassium 4.6, Chloride 94 L, Carbon Dioxide 27.0, Anion Gap 9, BUN 33 H, C reatinine 1.18 H, Estim Creat Clear Calc 23.91, Est GFR (MDRD) Af Amer 56 L, Est GFR (MDRD) Non-Af 46 L, BUN/Creatinine Ratio 28.0 H, Glucose 359 H, Calcium 10.2 H, Troponin I High Sens 19, Acetone Level SMALL H 06/18/24 15:43: Urine Color Yellow, Urine Clarity Sl. Cloudy, Urine pH 6.0, Ur Specific [place] 1.020, Urine Protein 100 H, Urine Glucose (UA) 1000 H, Urine Ketones 50 H, Urine Occult Blood 250 H, Urine Nitrite Negative, Urine Bilirubin Negative, Urine Urobilinogen Normal, Ur Leukocyte Esterase 100 H, Urine RBC 0-5 SEEN, Urine WBC 10-25 SEEN, Ur Squamous Epith Cells 0 SEEN, Urine Bacteria 4+, Urine Mucus 0 SEEN 06/18/24 20:37: POC Glucose 134 H 06/19/24 06:25: WBC 19.8 H, RBC 3.87 L, Hgb 11.7 L, Hct 35.3 L, MCV 91.2, MCH 30.2, MCHC 33.1, RDW Std Deviation 43.8, RDW Coeff of Milly 13.2, Plt Count 277, MPV 9.8, Immature Gran % (Auto) 0.900, Neut % (Auto) 87.4 H, Lymph % (Auto) 4.9 L, [place] % (Auto) 6.2, Eos % (Auto) 0.1, Baso % (Auto) 0.5, Absolute Neuts (auto) 17.3 H, Absolute Lymphs (auto) 0.96, Nucleated RBC % 0, PT 15.6 H, INR 1.2, S odium 135 L, Potassium 4.3, Chloride 106, Carbon Dioxide 22.0, Anion Gap 7, BUN 28 H, Creatinine 0.80, Estim Creat Clear Calc 35.98, Est GFR (MDRD) Af Amer 87, Est GFR (MDRD) Non-Af 72, BUN/Creatinine Ratio 35.0 H, Glucose 282 H, Hemoglobin A1c 13.8 H, Calcium 8.8, Total Bilirubin 0.40, AST 26, ALT 20, Alkaline Phosphatase 102, Total Protein 5.5 L, Albumin 2.0 L, Globulin 3.5, A lbumin/Globulin Ratio 0.6 L, TSH 1.480 06/19/24 06:26: POC Glucose 266 H Micro: Microbiology 06/18/24 20:50 Mucosa - Nose Respiratory Panel (PCR) - Final 06/18/24 15:53 Mucosa - Nose SARS-CoV-2, Influenza & RSV (PCR) - Final ABG Data ABG results: ABG 06/18/24 16:34 Specimen Type NUBIA Sample Site Not entered VBG pH 7.41 VBG pO2 20 L VBG HCO3 24 VBG Total CO2 26 VBG O2 Sat (Calc) 31 L VBG Base Excess 0 POC Mix VBG pCO2 Pt Tmp 38.7 L O2 Delivery Device Room Air Crit Call To/Read Back Yes Radiography Diagnostic Testing: Radiology Impression Chest X-Ray 06/18/24 15:41 IMPRESSION: Basilar atelectasis. Electronically Signed: Ian Woo DO at 16:51 EDT Reading Location ID and State: [facility] / [place] Tel [phone], Service support , Physical Exam Narrative General: Alert, Oriented x3, Cooperative, No apparent distress HEENT: Atraumatic, PERRLA, EOMI, Normocephalic Oral: Moist Mucosa Neck: Supple, No JVD Lungs: Diminished, Normal air movement, No rhonchi, No wheeze, No rales Cardiovascular: Regular rate, Regular Rhythm, Normal S1, Normal S2, No murmurs Abdomen: Soft, Non Tender, Non-Distended, No Hepato-splenomegaly Extremities: No edema, Capillary Refill Less than 3 Seconds Skin: No rashes, No breakdown Musculoskeletal: No Tenderness to Palpation of Joints or Extremities Neurological: No focal neurological deficits, Motor Exam 5/5 strength throughout, Sensory exam intact to light touch and pain Psych/Mental Status: Normal Affect, Appropriate Assessment & Plan Assessment/Plan (1) Urinary tract infection: PLAN: Plan 1. UTI with metabolic encephalopathy/KATHRYN ? Continue with antibiotics ? Cultures are pending ? Encephalopathy has resolved ? KATHRYN has resolved 2. DM2 ? Stable ? Continue sign scale insulin ? Accu-Cheks ACHS ? Will monitor make adjustments as necessary ? A1c of 13.8 3. Hypothyroidism ? Stable ? Continue with Synthroid ? TSH is normal DVT: Heparin Charges/Coding Visit Charges Inpatient E&M: 01541 Subs Hosp L2
[2024-06-19 12:31] LABS: Bedside Glucose 375 mg/dL (74-106)
--- NOTE | 2024-06-19 15:00 | CASEMGMT ---
RN MANUELA Assessment Face to Face with patient for initial transition planning/care coordination assessment. RN CM introduced self and role at [facility], pt voices understanding. Pt is A&Ox3 and able to answer all of this YARITZA ROY questions appropriately. Pt is resting comfortably in bed and is calm. Care providers, pharmacy, and demographics verified. Admitting dx: UTI, KATHRYN, AMS LACE Strata: 2 PCP: Francia Specialists: Lolis (Endo - [facility]). Pt used to see Dr. 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 Denies concerns DME: Medical alert, Walk in shower with GB and chair. Cane. FWW (pt was set up with a new FWW during previous stay), Rollator, Back Brace HHC/SNF: Denies SNF Hx, Hx with [facility] HH Pt?s goal: Home with HHC Plan: Anticipate Home with HHC. Pt states that she is not 100% sure on what she wants at this time and states that it is too early. PT is pending. Pt states that she prefers not to go to the assisted aspect of a facility. Pt would prefer HHC. Will follow. At this time, the pt states that she would like to have HHC through [facility] and denies wanting to see a list. CM and SW to follow. Jose Bunch RN, CM
[2024-06-19 17:33] LABS: Bedside Glucose 294 mg/dL (74-106)
[2024-06-19] MEDS: Pravastatin 20 MG Tablet PO (20:47)
[2024-06-19] MEDS: Insulin Glargine-YFGN 100 UNIT/ML Pen 6 UNIT SC (20:47)
[2024-06-19 21:06] LABS: Bedside Glucose 377 mg/dL (74-106)
[2024-06-20 02:56] VITALS: BP 160/95; PULSE 90; RESP 18; TEMP 36.2; O2SAT 93
[2024-06-20 04:39] VITALS: BMI 19.1
[2024-06-20 06:02] LABS: Absolute Lymphocyte Count 0.84 X10^3/uL (0.83-4.51); Absolute Neutrophil Count 15.6 X10^3/uL (2.0-7.7); Basophil# 0.07 X10^3/uL; Basophil% 0.4 % (0-1); Eosinophil# 0.14 X10^3/uL; Eosinophils% 0.8 % (0-5); Hematocrit 37.3 % (37-47); Hemoglobin 12.5 g/dL (12.0-15.0); Lymphocyte # 0.84 X10^3/ul (0.83-4.51); Lymphocyte % 4.5 % (19-41); Mean Corp Hgb Conc 33.5 g/dL (32-36); Mean Corpuscular Hgb 30.1 pg (27.0-32.0); Mean Corpuscular Volume 89.9 fL (81-99); Mean Platelet Vol. 9.9 fl (6.2-12.0); Monocyte# 1.73 X10^3/uL; Monocyte% 9.3 % (0-10); NRBC Flagged by Analyzer 0 % (0-5); Neutrophil # 15.59 X10^3/uL (2.7-7.7); Neutrophil % 83.8 % (47-70); POSITIVE DIFFERENTIAL YES; Platelet Count 312 K/mm3 (150-450); RBC Distribution Width CV 13.3 % (11.6-14.6); RBC Distribution Width SD 43.8 fl (35.1-43.9); Red Blood Count 4.15 M/mm3 (4.2-5.4); White Blood Count 18.6 K/mm3 (4.4-11.0)
[2024-06-20 06:05] LABS: Differential Indicated SCAN CRITERIA MET
[2024-06-20] MEDS: Insulin Lispro 100 UNIT/ML INSULN.PEN SC ×4 (06:18→21:16)
[2024-06-20] MEDS: Levothyroxine 88 MCG Tablet PO (06:18)
[2024-06-20 06:26] LABS: Anion Gap 8 (5-15); BUN 19 mg/dL (7-18); BUN/Creat Ratio 25.6 RATIO (10-20); Calcium,Total 8.7 mg/dL (8.5-10.1); Chloride 104 mmol/L (98-107); Creatinine, Serum 0.74 mg/dL (0.55-1.02); EST Glomerular Filtration Rate 79 mL/min (>60); Est Glom Filt Rate - Afr Amer 95 mL/min (>60); Glucose 280 mg/dL (74-106); Potassium 3.7 mmol/L (3.5-5.1); Sodium Level 136 mmol/L (136-145)
[2024-06-20 06:38] LABS: Bedside Glucose 265 mg/dL (74-106)
[2024-06-20 06:55] LABS: Differential Comment SCANNED
[2024-06-20] MEDS: Heparin Injection (Vial) 5,000 UNIT/ML VIAL 5000 UNIT SC ×2 (09:53→21:16)
[2024-06-20] MEDS: Ceftriaxone 1 GM/50 ML BAG IV (09:54)
[2024-06-20 09:59] VITALS: BP 116/70; PULSE 100; RESP 16; TEMP 37.1; O2SAT 97
--- NOTE | 2024-06-20 11:46 | PCM.PN.HOSP ---
Subjective Subjective Feels little bit better, no issues overnight Objective Data Objective Data Vital Signs: Vital Signs Temp Pulse Resp BP Pulse Ox O2 Del Method O2 Flow Rate 98.8 F 100 16 116/70 97 Room Air 2 06/20/24 09:59 06/20/24 09:59 06/20/24 09:59 06/20/24 09:59 06/20/24 09:59 06/20/24 09:59 06/19/24 19:41 Oxygen Flow Rate (L/min) 2 Oxygen Delivery Method Room Air Weight: 101 lb 3.075 oz Body Mass Index (BMI) 19.1 Intake & Output: Intake and Output for Last 24 Hours 06/19/24 06/20/24 06/21/24 03:59 03:59 03:59 Intake Total 2049 2750.0 / 2750.0 170 / 170 Balance 2049 2750.0 / 2750.0 170 / 170 Lab / Micro Data 06/20/24 05:21 06/20/24 05:21 Labs: Laboratory Results - last 24 hr 06/19/24 11:30: POC Glucose 375 H 06/19/24 17:12: POC Glucose 294 H 06/19/24 20:44: POC Glucose 377 H 06/20/24 05:21: WBC 18.6 H, RBC 4.15 L, Hgb 12.5, Hct 37.3, MCV 89.9, MCH 30.1, MCHC 33.5, RDW Std Deviation 43.8, RDW Coeff of Milly 13.3, Plt Count 312, MPV 9.9, Immature Gran % (Auto) 1.200 H, Neut % (Auto) 83.8 H, Lymph % (Auto) 4.5 L, [place] % (Auto) 9.3, Eos % (Auto) 0.8, Baso % (Auto) 0.4, Absolute Neuts (auto) 15.6 H, Absolute Lymphs (auto) 0.84, Nucleated RBC % 0, Differential Comment SCANNED, Diff Path Review February, Sodium 136, Potassium 3.7, Chloride 104, Carbon Dioxide 24.0, Anion Gap 8, BUN 19 H, Creatinine 0.74, Estim Creat Clear Calc 35.90, Est GFR (MDRD) Af Amer 95, Est GFR (MDRD) Non-Af 79, BUN/Creatinine Ratio 25.6 H, Glucose 280 H, Calcium 8.7 06/20/24 06:16: POC Glucose 265 H Micro: Microbiology 06/18/24 15:43 Urine, Random Urine Culture - Final Escherichia coli 06/18/24 20:50 Mucosa - Nose Respiratory Panel (PCR) - Final 06/18/24 15:53 Mucosa - Nose SARS-CoV-2, Influenza & RSV (PCR) - Final Physical Exam Narrative General: Alert, Oriented x3, Cooperative, No apparent distress HEENT: Atraumatic, PERRLA, EOMI, Normocephalic Oral: Moist Mucosa Neck: Supple, No JVD Lungs: Diminished, Normal air movement, No rhonchi, No wheeze, No rales Cardiovascular: Regular rate, Regular Rhythm, Normal S1, Normal S2, No murmurs Abdomen: Soft, Non Tender, Non-Distended, No Hepato-splenomegaly Extremities: No edema, Capillary Refill Less than 3 Seconds Skin: No rashes, No breakdown Musculoskeletal: No Tenderness to Palpation of Joints or Extremities Neurological: No focal neurological deficits, Motor Exam 5/5 strength throughout, Sensory exam intact to light touch and pain Psych/Mental Status: Normal Affect, Appropriate Assessment & Plan Assessment/Plan (1) Urinary tract infection: PLAN: Plan 1. E. coli UTI with metabolic encephalopathy/KATHRYN ? Cultures with a fairly sensitive E. coli, continue with Rocephin ? Blood cultures are pending ? Encephalopathy has resolved ? KATHRYN has resolved 2. DM2 ? Stable ? Continue sign scale insulin ? Accu-Cheks ACHS ? Will monitor make adjustments as necessary ? A1c of 13.8 3. Hypothyroidism ? Stable ? Continue with Synthroid ? TSH is normal DVT: Heparin Charges/Coding Visit Charges Inpatient E&M: 67812 Subs Hosp L2
[2024-06-20 12:42] LABS: Bedside Glucose 306 mg/dL (74-106)
[2024-06-20] MEDS: Ibuprofen 200 MG Tablet PO (14:28)
[2024-06-20 14:29] VITALS: BP 141/79; PULSE 98; RESP 14; TEMP 37.2; O2SAT 95
[2024-06-20 14:35] LABS: Pathologist Review Reviewed
[2024-06-20 17:42] LABS: Bedside Glucose 284 mg/dL (74-106)
[2024-06-20 21:00] VITALS: BP 148/82; PULSE 90; RESP 18; TEMP 36.7; O2SAT 95
[2024-06-20] MEDS: Insulin Glargine-YFGN 100 UNIT/ML Pen 6 UNIT SC (21:16)
[2024-06-20] MEDS: Pravastatin 20 MG Tablet PO (21:17)
[2024-06-20 21:40] LABS: Bedside Glucose 402 mg/dL (74-106)
[2024-06-21 03:00] VITALS: BP 158/86; PULSE 98; RESP 18; TEMP 36.2; O2SAT 94
[2024-06-21 04:54] VITALS: BMI 18.9
[2024-06-21] MEDS: Levothyroxine 88 MCG Tablet PO (06:21)
[2024-06-21] MEDS: Insulin Lispro 100 UNIT/ML INSULN.PEN SC ×2 (06:24→11:38)
[2024-06-21 06:44] LABS: Absolute Lymphocyte Count 1.21 X10^3/uL (0.83-4.51); Absolute Neutrophil Count 10.7 X10^3/uL (2.0-7.7); Basophil% 0.7 % (0-1); Eosinophil# 0.11 X10^3/uL; Eosinophils% 0.8 % (0-5); Hematocrit 35.5 % (37-47); Hemoglobin 11.9 g/dL (12.0-15.0); Lymphocyte # 1.21 X10^3/ul (0.83-4.51); Lymphocyte % 8.7 % (19-41); Mean Corp Hgb Conc 33.5 g/dL (32-36); Mean Corpuscular Hgb 29.7 pg (27.0-32.0); Mean Corpuscular Volume 88.5 fL (81-99); Mean Platelet Vol. 9.9 fl (6.2-12.0); Monocyte# 1.46 X10^3/uL; Monocyte% 10.5 % (0-10); NRBC Flagged by Analyzer 0 % (0-5); Neutrophil # 10.69 X10^3/uL (2.7-7.7); Neutrophil % 77.2 % (47-70); POSITIVE MORPHOLOGY YES; Platelet Count 326 K/mm3 (150-450); RBC Distribution Width CV 13.3 % (11.6-14.6); RBC Distribution Width SD 43.6 fl (35.1-43.9); Red Blood Count 4.01 M/mm3 (4.2-5.4); White Blood Count 13.9 K/mm3 (4.4-11.0)
[2024-06-21 06:54] LABS: Bedside Glucose 258 mg/dL (74-106)
[2024-06-21 07:38] VITALS: O2SAT 96
[2024-06-21 07:43] LABS: Differential Indicated SCAN CRITERIA MET
[2024-06-21 09:14] VITALS: BP 131/69; PULSE 99; RESP 15; TEMP 37.1; O2SAT 94
[2024-06-21] MEDS: Ceftriaxone 1 GM/50 ML BAG IV (09:20)
[2024-06-21] MEDS: Heparin Injection (Vial) 5,000 UNIT/ML VIAL 5000 UNIT SC (09:23)
--- NOTE | 2024-06-21 09:31 | CASEMGMT ---
Addendum entered by Alonso Bunch 06/21/24 11:26: Marcia from [facility] returns call and states that they are able to accept the pt for SOC on Monday (06/26). RN MANUELA to pt room at this time and updated the pt with this information. Pt states that she is OK with this and denies further needs at this time. TC to Marcia and Marcia notified that the pt is OK with this SOC date. DC plan updated. Addendum entered by Alonso Bunch 06/21/24 09:53: TCU has declined the pt. This RN CM to pt room at this time and notified pt of declination. This RN CM discussed HHC with the pt. The pt refused wanting to see a list of local in-network HHC agencies as she has had [facility] in the past. TC to Marcia at [facility] and referral made for SN, PT, and OT. Will follow. Original Note: RN MANUELA to pt room at this time to discuss DC planning. Dr. Drew at bedside and states that the pt will be able to DC today. This RN CM reviewed how the pt did with therapy. Pt states that she would be willing to stay here in the hospital a couple more days for further therapy in the TCU. Pt states that if she does not get accepted in the TCU then she would want to DC home as she would not want to go to any other type of SNF. This RN CM to f/u with this pt about HHC if the pt does not get approved for the TCU. SW made aware.
--- NOTE | 2024-06-21 10:56 | DCINST_ITS ---
Discharge Instructions Diet Discharge Diet: Low fat / Low cholesterol and Carb Control Diet Activity Discharge Activity: Return to Normal Activity Dressing / Incision Call your doctor if you observe: Fever of 101 or Higher, Shortness of breath, Dizziness, Fainting spells, Swelling in the ankles, Chest pain and Increased palpitations (irregular heartbeat) Follow Up Care Test Results: Test results from this visit will be discussed in further detail at your follow- up appointment, if applicable. Discharge Plan Admission Admit Date/Time: 06/18/24 17:59 Attending Provider: Tadeo Drew Primary Care Provider: Kate Feldman Consulting Providers: Michelle Lisa Discharge Orders/Prescriptions Prescriptions: New cefdinir 300 mg capsule 300 mg PO BID 3 Days Qty: 6 0RF Continued biotin 10,000 mcg capsule 10,000 mcg PO DAILY pravastatin 20 MG tablet 20 mg PO QHS omega-3 fatty acids-fish oil 1 EACH capsule 1 ea PO BID multivitamin with folic acid 1 TABLET tablet 1 tab PO DAILY insulin glargine [Lantus Solostar U-100 Insulin] 100 unit/mL (3 mL) insulin pen 6 unit subcut QHS insulin lispro [Humalog KwikPen Insulin] 100 unit/mL Insulin Pen 2 unit subcut TIDAC Rx Instructions: 2 units for breakfast and lunch and 4 units at dinner levothyroxine 88 mcg tablet 88 mcg PO DAILY Referrals / Follow Up: Kate Feldman MD [Primary Care Provider] - Within 1 Week Disposition Disposition (needs filled in before D/C Order can be placed): Home Health Service
[2024-06-21 12:02] LABS: Bedside Glucose 442 mg/dL (74-106)
[2024-06-21 13:43] VITALS: BP 137/83; PULSE 100; RESP 15; TEMP 36.6; O2SAT 96
--- NOTE | 2024-06-21 15:08 | PCM.DC.SUM ---
Providers Date of Admission: 06/18/24 Primary Care Physician: Dr. Kate Feldman MD Reason For Visit: UTI, KATHRYN, AMS Diagnosis Discharge Diagnosis (1) Urinary tract infection: Status: Acute Code(s): N39.0 - Urinary tract infection, site not specified Medications at Discharge Home Medications multivitamin with folic acid 400 mcg tablet 1 tab PO DAILY Supplement 02/27/17 omega-3 fatty acids-fish oil 340 mg-1,000 mg capsule 1 ea PO BID Supplement 02/27/17 pravastatin 20 mg tablet 20 mg PO QHS Cholesterol 02/27/17 biotin 10,000 mcg capsule 10,000 mcg PO DAILY Supplement 01/11/18 levothyroxine 88 mcg tablet 88 mcg PO DAILY disorder of thyroid gland 01/22/24 insulin glargine 100 unit/mL (3 mL) subcutaneous pen (Lantus Solostar U-100 Insulin) 6 unit subcut QHS diabetes 06/18/24 insulin lispro 100 unit/mL subcutaneous pen (Humalog KwikPen (U-100) Insulin) 2 unit subcut TIDAC diabetes 06/20/24 cefdinir 300 mg capsule 300 mg PO BID 3 days #6 caps 06/21/24 Hospital Course Operations None Procedures None Summary of Care Provided Minutes Spent on Discharge: 32 Hospital Course: Per HPI: SHAWN JACKSON, is a 89-year-old female history of diabetes and hypothyroidism presented to [facility] ED 06/18/2024 with generalized weakness worse over the past 2 days to the point where she is having difficulty getting out of bed. [id number] also feels she has been confused over the last couple of days. Saw her primary care physician yesterday and her Lantus was increased as blood sugars have been 300s to 400s and she has had increased thirst and urinary frequency with 20 pound weight loss since January. In the ED patient with white blood cell count of 20, creatinine 1.18 up from 0.60 several months ago and sodium of 130 and UA suggestive of UTI. Hospitalist contacted for admission due to generalized weakness and encephalopathy with suspected UTI and KATHRYN. Patient evaluated at bedside. Patient confused and not able to answer orientation questions and frequently forgets what she is talking on the middle of her sentence and switches topic. Unable to even get ROS from patient as she is awake and alert but not making sense. No family at bedside at my evaluation Hospital Course: 1. E. coli UTI with metabolic encephalopathy and KATHRYN?89-year-old female presented to the hospital for altered mental status. She was found to have an KATHRYN as well on admission which resolved. She was started on Rocephin with significant improvement in her altered mental status. White count improved to 13.9 on the day of discharge. Urine culture demonstrated a pansensitive E. coli, blood cultures are negative. I discussed with her the plan for discharge today she expressed understanding risk-benefit to go going home and would like to go home today. Will continue with cefdinir for another 3 days at 300 mg p.o. twice daily. 2. Type 2 diabetes, hypothyroidism are all chronic medical conditions which complicate her care. Her home medications were continued where appropriate Physical Exam Narrative General: Alert, Oriented x3, Cooperative, No apparent distress HEENT: Atraumatic, PERRLA, EOMI, Normocephalic Oral: Moist Mucosa Neck: Supple, No JVD Lungs: Diminished, Normal air movement, No rhonchi, No wheeze, No rales Cardiovascular: Regular rate, Regular Rhythm, Normal S1, Normal S2, No murmurs Abdomen: Soft, Non Tender, Non-Distended, No Hepato-splenomegaly Extremities: No edema, Capillary Refill Less than 3 Seconds Skin: No rashes, No breakdown Musculoskeletal: No Tenderness to Palpation of Joints or Extremities Neurological: No focal neurological deficits, Motor Exam 5/5 strength throughout, Sensory exam intact to light touch and pain Psych/Mental Status: Normal Affect, Appropriate Weight / BMI Weight Weight: 100 lb 4.965 oz Body Mass Index (BMI) 18.9 ABG / Lab / Microbiology Data 06/21/24 06:06 06/20/24 05:21 Laboratory: Laboratory Results - last 24 hr 06/20/24 17:00: POC Glucose 284 H 06/20/24 21:15: POC Glucose 402 H 06/21/24 06:06: WBC 13.9 H, RBC 4.01 L, Hgb 11.9 L, Hct 35.5 L, MCV 88.5, MCH 29.7, MCHC 33.5, RDW Std Deviation 43.6, RDW Coeff of Milly 13.3, Plt Count 326, MPV 9.9, Immature Gran % (Auto) 2.100 H, Neut % (Auto) 77.2 H, Lymph % (Auto) 8.7 L, [place] % (Auto) 10.5 H, Eos % (Auto) 0.8, Baso % (Auto) 0.7, Absolute Neuts (auto) 10.7 H, Absolute Lymphs (auto) 1.21, Nucleated RBC % 0, Differential Comment 06/21/24 06:23: POC Glucose 258 H 06/21/24 11:35: POC Glucose 442 H Microbiology: Microbiology 06/18/24 21:49 Blood Culture (Wb) - Left Forearm Blood Culture - Preliminary No growth in 48 hours. 06/18/24 15:43 Urine, Random Urine Culture - Final Escherichia coli 06/18/24 20:50 Mucosa - Nose Respiratory Panel (PCR) - Final 06/18/24 15:53 Mucosa - Nose SARS-CoV-2, Influenza & RSV (PCR) - Final D/C Instructions Discharge Diet: Low fat / Low cholesterol and Carb Control Diet Call your doctor if you observe: Fever of 101 or Higher, Shortness of breath, Dizziness, Fainting spells, Swelling in the ankles, Chest pain and Increased palpitations (irregular heartbeat) Meaningful Use Info Meaningful Use Meaningful Use Diagnoses (Choose all that apply): None applicable Ischemic Stroke Statin Dosing Therapy Reference: STATIN DOSE THERAPY REFERENCE: * Patients > 75 years receive moderate or high dose statin therapy. * Patients 75 years or YOUNGER should receive HIGH intensity statin dose unless contraindicated. You will be required to document reason for non-treatment if statin daily dose does not meet guidelines. HIGH DOSE STATIN THERAPY DAILY Atorvastatin > than or = to 40 mg Rosuvastatin > than or = to 20 mg Amlodipine + Atorvastatin > than or = to 2.5/40 mg Ezetimibe + Simvastatin 10/80 mg Simvastatin 80mg Discharge Plan Admission Admit Date/Time: 06/18/24 17:59 Attending Provider: Tadeo Drew Primary Care Provider: Kate Feldman Consulting Providers: Michelle Lisa Discharge Orders/Prescriptions Prescriptions: New cefdinir 300 mg capsule 300 mg PO BID 3 Days Qty: 6 0RF Continued biotin 10,000 mcg capsule 10,000 mcg PO DAILY pravastatin 20 MG tablet 20 mg PO QHS omega-3 fatty acids-fish oil 1 EACH capsule 1 ea PO BID multivitamin with folic acid 1 TABLET tablet 1 tab PO DAILY insulin glargine [Lantus Solostar U-100 Insulin] 100 unit/mL (3 mL) insulin pen 6 unit subcut QHS insulin lispro [Humalog KwikPen Insulin] 100 unit/mL Insulin Pen 2 unit subcut TIDAC Rx Instructions: 2 units for breakfast and lunch and 4 units at dinner levothyroxine 88 mcg tablet 88 mcg PO DAILY Referrals / Follow Up: Kate Feldman MD [Primary Care Provider] - 06/28/24 2:00 pm Disposition Disposition (needs filled in before D/C Order can be placed): Home Health Service Charges/Coding Visit Charges Inpatient E&M: 72171 Disch Hosp >30min
== END 2024-06-21 15:10 | disposition home or self-care (01) | DRG 871 ==
LOC: ED 17:23 → PCU 18:13
PROVIDERS: Admitting Provider Internal Medicine; Emergency Provider Emergency Medicine; PCP Internal Medicine; Visit Provider Family Medicine
DX: A41.50 Gram-negative sepsis, unspecified (principal); G93.41 Metabolic encephalopathy; N17.9 Acute kidney failure, unspecified; E87.1 Hypo-osmolality and hyponatremia; N39.0 Urinary tract infection, site not specified; J98.11 Atelectasis; E11.65 Type 2 diabetes mellitus with hyperglycemia; E03.9 Hypothyroidism, unspecified; E78.5 Hyperlipidemia, unspecified; B96.20 Unspecified Escherichia coli [E. coli] as the cause of diseases classified elsewhere; E86.0 Dehydration; Z79.4 Long term (current) use of insulin; Z11.52 Encounter for screening for COVID-19; Z79.84 Long term (current) use of oral hypoglycemic drugs; Z79.890 Hormone replacement therapy; Z79.899 Other long term (current) drug therapy; Z87.891 Personal history of nicotine dependence
CPT/HCPCS: 36415; 71046; 80048; 80053; 81001; 82009; 82803; 82962; 83036; 84443; 84484; 85025; 85610; 87040; 87077; 87086; 87088; 87186; 87631; 87633; 93005; 94668; 97162; 97166; 97530; 97802; 99252; 99284; J7030; A4216; G0463